=== PATIENT | female | born 1945 | race Caucasian/White ===

== ENCOUNTER → 2017-10-16 13:08 | Outpatient (CLI) | payer MEDICARE, OTHER, SELFPAY ==
[2017-10-16 14:01] LABS: Add Manual Diff / Slide Review NO; Basophils Percent Auto 0.5 % (0-2); Eosinophils Percent Auto 2.7 % (2-4); Hematocrit 38.4 % (36-46); Hemoglobin 12.8 g/dL (12.0-16.0); Lymphocytes Percent Auto 33.5 % (25-40); Mean Corpuscular HGB Conc 33.4 % (30-36); Mean Corpuscular Hemoglobin 29.3 PG (26-34); Mean Corpuscular Volume 87.7 fL (80-100); Monocytes Percent Auto 7.1 % (3-14); Neutrophils Absolute Auto 2700 /uL (3000-5900); Neutrophils Percent Auto 56.2 % (50-75); Platelet Count 219 X10^3/uL (150-400); Red Blood Cell Count 4.37 X10^6/uL (4.0-5.2); Red Cell Distribution Width 12.6 % (11.6-14.8); White Blood Cell Count 4.8 X10^3/uL (4.5-11.0)
[2017-10-16 14:13] LABS: Erythrocyte Sedimentation Rate 20 MM/HR (0-20)
[2017-10-16 14:24] LABS: Alanine Aminotransferase 26 IU/L (9-52); Albumin 4.3 g/dL (3.5-5.0); Albumin Globulin Ratio 1.4 (1.0-2.8); Alkaline Phosphatase 69 U/L (38-126); Aspartate Aminotransferase 25 IU/L (14-36); BUN Creatinine Ratio 21.3 (6-22); Bilirubin Total 0.5 mg/dL (0.2-1.3); Blood Urea Nitrogen 17 mg/dL (7-17); Calcium 9.9 mg/dL (8.4-10.2); Carbon Dioxide 29 mmol/L (22-32); Chloride 101 mmol/L (98-107); Cholesterol 205 mg/dL (140-199); Estimated Glomerular Filt Rate > 60.0 mL/min (>60); Globulin 3.1 g/dL (1.7-4.1); Glucose 92 mg/dL (80-110); HDL Cholesterol 57 mg/dL (40-60); HEMOLYSIS < 15 (0-50); LDL Cholesterol Calculated 129 mg/dL (<100); Potassium 4.1 mmol/L (3.4-5.1); Sodium 141 mmol/L (137-145); Total Protein 7.4 g/dL (6.3-8.2); Triglycerides 96 mg/dL (35-150)
== END ==
PROVIDERS: Family Provider Internal Medicine; PCP Internal Medicine; Visit Provider Internal Medicine
DX: M06.80 Other specified rheumatoid arthritis, unspecified site (principal); E78.6 Lipoprotein deficiency
CPT/HCPCS: 36415; 80053; 80061; 85025; 85651

== ENCOUNTER → 2017-10-17 12:20 | Outpatient (CLI) | payer MEDICARE, OTHER, SELFPAY ==
--- NOTE | 2017-10-17 | DI.MG.S_ITS ---
BILATERAL DIGITAL SCREENING MAMMOGRAM 3D/2D WITH CAD: 10/17/2017 CLINICAL: Routine screening. Family history of breast cancer. Comparison is made to exams dated: 05/13/2014 mammogram, 12/26/2011 mammogram, and 12/16/2009 mammogram - [facility]. The tissue of both breasts is extremely dense, which lowers the sensitivity of mammography. Current study was also evaluated with a Computer Aided Detection (CAD) system. No significant masses, calcifications, or other findings are seen in either breast. There has been no significant interval change. IMPRESSION: NEGATIVE There is no mammographic evidence of malignancy. A 1 year screening mammogram is recommended. This exam was interpreted at Station ID: [id number]. NOTE: For mammograms, a report in lay terms will be sent to the patient. Approximately 15% of breast malignancies will not be visualized mammographically. In the management of a palpable breast mass, a negative mammogram must not discourage biopsy of a clinically suspicious lesion. Electronically Signed By: Jovanny patel/jasmyne:10/17/2017 17:33:52 letter sent: Normal Exam ACR BI-RADS Category 1: Negative 3341F
== END ==
PROVIDERS: Family Provider Internal Medicine; PCP Internal Medicine; Visit Provider Internal Medicine
DX: Z12.31 Encounter for screening mammogram for malignant neoplasm of breast (principal); Z80.3 Family history of malignant neoplasm of breast
CPT/HCPCS: 77063; 77067

== ENCOUNTER → 2017-10-18 13:16 | Outpatient (CLI) | payer MEDICARE, OTHER, SELFPAY ==
--- NOTE | 2017-10-18 | DI.RAD.S_ITS ---
This blank DEXA report has been sent in error by the PACS system. The correct and complete report will be forthcoming in 1-2 days. Thank you for your patience and understanding. Dictated by: Edi Hyman M.D. on 10/18/2017 at 15:08 Approved by: Edi Hyman M.D. on 10/18/2017 at 15:08
--- NOTE | 2017-10-18 | DI.MRI.S_ITS ---
PROCEDURE: MR HAND RT WO CON INDICATIONS: PAIN IN RIGHT HAND TECHNIQUE: Coronal and axial T1 spin echo and T2 fast spin echo with fat saturation. Post-contrast coronal and axial T1 spin echo with fat saturation images through the right hand and wrist. COMPARISON: [facility] [place], CR, XR WRIST 3+ VIEWS RIGHT, 09/28/2017, 14:17. [facility] [place], COMFORT, BILATERAL HAND 3VW, 06/03/2015, 13:59. FINDINGS: Image quality: Excellent. Bones and cartilage: There is diffuse joint space narrowing throughout the first through fifth interphalangeal joints, MCP joints, and CMC joints. Marrow edema is noted adjacent to sac in MCP joint as well as the second through fourth PIP joints. There is suggestion of bony erosive changes involving both medial and lateral aspect of second through fourth proximal phalangeal heads. Erosive changes also noted involving the radial aspect of the second and third metatarsal heads. Subtle erosive changes also noted involving proximal portion of triquetrum and possible proximal and ulnar aspect of lunate. Chronic appearing deformity involving the first metacarpal head is seen with erosive changes are noted in first metacarpal head and first proximal phalangeal base. Synovium: There is suggestion of diffuse synovial thickening and edema surrounding the above-mentioned joints, consistent with synovitis. Significant fluid distention of extensor tendon sheaths are seen, particularly involving radial aspect of extensor tendons suggestive of significant tenosynovitis. Soft tissues: There is no evidence of flexor or extensor tendon rupture. Triangular fibrocartilage complex is grossly intact. Scapholunate or lunotriquetral ligaments are grossly intact. IMPRESSION: 1. Extensive joint space narrowing, bony erosion, marrow edema with surrounding soft tissue swelling and synovial thickening throughout first through fifth digits and intercarpal joints as described in detail above suggestive of extensive inflammatory arthropathy. 2. Significant tenosynovitis throughout extensor tendons particularly along radial aspect. No evidence of tendon or ligament rupture. Dictated by: Edi Hyman M.D. on 10/18/2017 15:38 Approved by: Edi Hyman M.D. on 10/19/2017 at 17:20
== END ==
PROVIDERS: Family Provider Internal Medicine; PCP Internal Medicine; Visit Provider Internal Medicine
DX: M79.641 Pain in right hand (principal); M65.841 Other synovitis and tenosynovitis, right hand; M19.041 Primary osteoarthritis, right hand; M79.89 Other specified soft tissue disorders; Z78.0 Asymptomatic menopausal state; M85.851 Other specified disorders of bone density and structure, right thigh; Z82.62 Family history of osteoporosis; Z87.891 Personal history of nicotine dependence; M06.9 Rheumatoid arthritis, unspecified
CPT/HCPCS: 73218; 77080

== ENCOUNTER → 2018-02-15 07:45 | Outpatient (CLI) | payer MEDICARE, OTHER, SELFPAY ==
[2018-02-15 09:01] LABS: Add Manual Diff / Slide Review NO; Basophils Percent Auto 0.4 % (0-2); Eosinophils Percent Auto 2.1 % (2-4); Hematocrit 38.9 % (36-46); Hemoglobin 12.9 g/dL (12.0-16.0); Lymphocytes Percent Auto 30.7 % (25-40); Mean Corpuscular HGB Conc 33.1 % (30-36); Mean Corpuscular Hemoglobin 29.4 PG (26-34); Mean Corpuscular Volume 88.7 fL (80-100); Monocytes Percent Auto 8.8 % (3-14); Neutrophils Absolute Auto 2400 /uL (1500-7000); Platelet Count 209 X10^3/uL (150-400); Red Blood Cell Count 4.38 X10^6/uL (4.0-5.2); Red Cell Distribution Width 13.5 % (11.6-14.8); White Blood Cell Count 4.2 X10^3/uL (4.5-11.0)
[2018-02-15 09:26] LABS: Alanine Aminotransferase 36 IU/L (9-52); Aspartate Aminotransferase 28 IU/L (14-36); Cholesterol 131 mg/dL (140-199); HDL Cholesterol 71 mg/dL (40-60); LDL Cholesterol Calculated 49 mg/dL (<100); Triglycerides 56 mg/dL (35-150)
[2018-02-15 09:27] LABS: C-Reactive Protein Quant < 0.5 mg/dL (<1.0); Erythrocyte Sedimentation Rate 14 MM/HR (0-20)
== END ==
PROVIDERS: PCP Internal Medicine; Visit Provider Internal Medicine
DX: Z23 Encounter for immunization (principal); E78.00 Pure hypercholesterolemia, unspecified
CPT/HCPCS: 36415; 80061; 84450; 84460; 85025; 85651; 86140

== ENCOUNTER → 2018-04-15 11:46 | Outpatient (CLI) | payer MEDICARE, OTHER, SELFPAY ==
[2018-04-15 12:52] LABS: BUN Creatinine Ratio 23.8 (6-22); Blood Urea Nitrogen 19 mg/dL (7-17); Calcium 9.6 mg/dL (8.4-10.2); Carbon Dioxide 28 mmol/L (22-32); Chloride 101 mmol/L (98-107); Estimated Glomerular Filt Rate > 60.0 mL/min (>60); Glucose 89 mg/dL (80-110); HEMOLYSIS < 15 (0-50); Potassium 4.4 mmol/L (3.4-5.1); Sodium 139 mmol/L (137-145)
== END ==
PROVIDERS: Family Provider Internal Medicine; PCP Internal Medicine; Visit Provider Internal Medicine Gastroenterology
DX: K63.9 Disease of intestine, unspecified (principal)
CPT/HCPCS: 36415; 80048

== ENCOUNTER → 2018-06-14 08:19 | Outpatient (CLI) | payer MEDICARE, OTHER, SELFPAY ==
[2018-06-14 09:10] LABS: Add Manual Diff / Slide Review NO; Basophils Absolute Auto 0 /uL (0-100); Basophils Percent Auto 0.5 % (0-2); Eosinophils Absolute Auto 100 /uL (0-450); Hematocrit 38.8 % (36-46); Lymphocytes Absolute Auto 1200 /uL (1100-4500); Lymphocytes Percent Auto 35.4 % (25-40); Mean Corpuscular HGB Conc 33.4 % (30-36); Mean Corpuscular Hemoglobin 29.8 PG (26-34); Mean Corpuscular Volume 89.4 fL (80-100); Monocytes Absolute Auto 300 /uL (0-900); Monocytes Percent Auto 8.2 % (3-14); Neutrophils Absolute Auto 1800 /uL (1500-7000); Neutrophils Percent Auto 51.9 % (50-75); Platelet Count 186 X10^3/uL (150-400); Red Blood Cell Count 4.34 X10^6/uL (4.0-5.2); Red Cell Distribution Width 14.9 % (11.6-14.8); White Blood Cell Count 3.4 X10^3/uL (4.5-11.0)
[2018-06-14 10:18] LABS: Alanine Aminotransferase 47 IU/L (9-52); Albumin 4.2 g/dL (3.5-5.0); Albumin Globulin Ratio 1.7 (1.0-2.8); Alkaline Phosphatase 58 U/L (38-126); Aspartate Aminotransferase 34 IU/L (14-36); Bilirubin Total 0.6 mg/dL (0.2-1.3); Blood Urea Nitrogen 16 mg/dL (7-17); Calcium 9.5 mg/dL (8.4-10.2); Carbon Dioxide 27 mmol/L (22-32); Chloride 103 mmol/L (98-107); Estimated Glomerular Filt Rate > 60.0 mL/min (>60); Globulin 2.5 g/dL (1.7-4.1); Glucose 87 mg/dL (80-110); HEMOLYSIS < 15 (0-50); Potassium 4.6 mmol/L (3.4-5.1); Sodium 138 mmol/L (137-145); Total Protein 6.7 g/dL (6.3-8.2)
[2018-06-14 12:36] LABS: Erythrocyte Sedimentation Rate 9 MM/HR (0-20)
== END ==
PROVIDERS: Family Provider Internal Medicine; PCP Internal Medicine; Visit Provider General Practice
DX: R19.03 Right lower quadrant abdominal swelling, mass and lump (principal); M15.0 Primary generalized (osteo)arthritis; E78.00 Pure hypercholesterolemia, unspecified; M06.80 Other specified rheumatoid arthritis, unspecified site
CPT/HCPCS: 36415; 80053; 85025; 85651

== ENCOUNTER → 2018-09-17 11:26 | Outpatient (CLI) | payer MEDICARE, OTHER, SELFPAY ==
[2018-09-17 11:55] LABS: Add Manual Diff / Slide Review NO; Basophils Absolute Auto 0 /uL (0-100); Basophils Percent Auto 0.5 % (0-2); Eosinophils Absolute Auto 100 /uL (0-450); Eosinophils Percent Auto 2.7 % (2-4); Hematocrit 40.7 % (36-46); Hemoglobin 13.3 g/dL (12.0-16.0); Lymphocytes Absolute Auto 1500 /uL (1100-4500); Lymphocytes Percent Auto 30.5 % (25-40); Mean Corpuscular HGB Conc 32.6 % (30-36); Monocytes Absolute Auto 400 /uL (0-900); Monocytes Percent Auto 7.5 % (3-14); Neutrophils Absolute Auto 2900 /uL (1500-7000); Neutrophils Percent Auto 58.8 % (50-75); Platelet Count 204 X10^3/uL (150-400); Red Blood Cell Count 4.42 X10^6/uL (4.0-5.2); Red Cell Distribution Width 13.9 % (11.6-14.8); White Blood Cell Count 4.9 X10^3/uL (4.5-11.0)
[2018-09-17 12:17] LABS: Erythrocyte Sedimentation Rate 6 MM/HR (0-20)
[2018-09-17 12:31] LABS: Alanine Aminotransferase 42 IU/L (9-52); Albumin 4.3 g/dL (3.5-5.0); Albumin Globulin Ratio 1.7 (1.0-2.8); Alkaline Phosphatase 64 U/L (38-126); Aspartate Aminotransferase 32 IU/L (14-36); BUN Creatinine Ratio 24.3 (6-22); Bilirubin Total 0.6 mg/dL (0.2-1.3); Blood Urea Nitrogen 17 mg/dL (7-17); Calcium 9.9 mg/dL (8.4-10.2); Carbon Dioxide 28 mmol/L (22-32); Chloride 104 mmol/L (98-107); Estimated Glomerular Filt Rate > 60.0 mL/min (>60); Globulin 2.6 g/dL (1.7-4.1); Glucose 92 mg/dL (80-110); HEMOLYSIS < 15 (0-50); Potassium 4.3 mmol/L (3.4-5.1); Sodium 141 mmol/L (137-145); Total Protein 6.9 g/dL (6.3-8.2)
== END ==
PROVIDERS: PCP Internal Medicine; Visit Provider Internal Medicine
DX: M06.80 Other specified rheumatoid arthritis, unspecified site (principal)
CPT/HCPCS: 36415; 80053; 85025; 85651

== ENCOUNTER → 2018-12-04 10:57 | Outpatient (CLI) | payer MEDICARE, OTHER, SELFPAY ==
--- NOTE | 2018-12-04 | DI.MG.S_ITS ---
BILATERAL DIGITAL SCREENING MAMMOGRAM 3D/2D WITH CAD: 12/04/2018 CLINICAL: Routine screening. Family history of breast cancer. Comparison is made to exams dated: 10/17/2017 mammogram, 05/13/2014 mammogram, and 12/26/2011 mammogram - [facility]. The tissue of both breasts is heterogeneously dense. This may lower the sensitivity of mammography. Current study was also evaluated with a Computer Aided Detection (CAD) system. No significant masses, calcifications, or other findings are seen in either breast. There has been no significant interval change. IMPRESSION: NEGATIVE There is no mammographic evidence of malignancy. A 1 year screening mammogram is recommended. This exam was interpreted at Station ID: [id number]. NOTE: For mammograms, a report in lay terms will be sent to the patient. Approximately 15% of breast malignancies will not be visualized mammographically. In the management of a palpable breast mass, a negative mammogram must not discourage biopsy of a clinically suspicious lesion. Electronically Signed By: Jovanny patel/jasmyne:12/04/2018 18:11:59 letter sent: Normal Exam ACR BI-RADS Category 1: Negative 3341F
== END ==
PROVIDERS: PCP Internal Medicine; Visit Provider Internal Medicine
DX: Z12.31 Encounter for screening mammogram for malignant neoplasm of breast (principal); Z80.3 Family history of malignant neoplasm of breast
CPT/HCPCS: 77063; 77067

== ENCOUNTER → 2018-12-19 08:17 | Outpatient (CLI) | payer MEDICARE, OTHER, SELFPAY ==
[2018-12-19 09:07] LABS: Add Manual Diff / Slide Review NO; Basophils Absolute Auto 0 /uL (0-100); Basophils Percent Auto 0.5 % (0-2); Eosinophils Absolute Auto 100 /uL (0-450); Eosinophils Percent Auto 2.5 % (2-4); Hemoglobin 13.2 g/dL (12.0-16.0); Lymphocytes Absolute Auto 1200 /uL (1100-4500); Lymphocytes Percent Auto 29.3 % (25-40); Mean Corpuscular Hemoglobin 30.3 PG (26-34); Mean Corpuscular Volume 91.8 fL (80-100); Monocytes Absolute Auto 300 /uL (0-900); Monocytes Percent Auto 8.1 % (3-14); Neutrophils Absolute Auto 2300 /uL (1500-7000); Neutrophils Percent Auto 59.6 % (50-75); Platelet Count 183 X10^3/uL (150-400); Red Blood Cell Count 4.36 X10^6/uL (4.0-5.2); Red Cell Distribution Width 13.8 % (11.6-14.8); White Blood Cell Count 3.9 X10^3/uL (4.5-11.0)
[2018-12-19 09:21] LABS: Erythrocyte Sedimentation Rate 8 MM/HR (0-20)
[2018-12-19 09:39] LABS: Alanine Aminotransferase 29 IU/L (9-52); Albumin 4.2 g/dL (3.5-5.0); Albumin Globulin Ratio 1.7 (1.0-2.8); Alkaline Phosphatase 53 U/L (38-126); Aspartate Aminotransferase 29 IU/L (14-36); BUN Creatinine Ratio 24.3 (6-22); Bilirubin Total 0.7 mg/dL (0.2-1.3); Blood Urea Nitrogen 17 mg/dL (7-17); Calcium 9.5 mg/dL (8.4-10.2); Carbon Dioxide 27 mmol/L (22-32); Chloride 105 mmol/L (98-107); Estimated Glomerular Filt Rate > 60.0 mL/min (>60); Globulin 2.5 g/dL (1.7-4.1); Glucose 90 mg/dL (80-110); HEMOLYSIS < 15 (0-50); Potassium 4.3 mmol/L (3.4-5.1); Sodium 139 mmol/L (137-145); Total Protein 6.7 g/dL (6.3-8.2)
== END ==
PROVIDERS: PCP Internal Medicine; Visit Provider Internal Medicine
DX: M06.80 Other specified rheumatoid arthritis, unspecified site (principal)
CPT/HCPCS: 36415; 80053; 85025; 85651

== ENCOUNTER → 2019-04-24 08:14 | Outpatient (CLI) | payer MEDICARE, OTHER, SELFPAY ==
[2019-04-24 09:20] LABS: Add Manual Diff / Slide Review NO; Basophils Absolute Auto 0 /uL (0-100); Basophils Percent Auto 0.5 % (0-2); Eosinophils Absolute Auto 100 /uL (0-450); Eosinophils Percent Auto 3.1 % (2-4); Hemoglobin 13.1 g/dL (12.0-16.0); Lymphocytes Absolute Auto 1100 /uL (1100-4500); Lymphocytes Percent Auto 25.2 % (25-40); Mean Corpuscular HGB Conc 33.6 % (30-36); Mean Corpuscular Hemoglobin 30.8 PG (26-34); Mean Corpuscular Volume 91.7 fL (80-100); Monocytes Absolute Auto 400 /uL (0-900); Neutrophils Absolute Auto 2800 /uL (1500-7000); Neutrophils Percent Auto 63.2 % (50-75); Platelet Count 195 X10^3/uL (150-400); Red Blood Cell Count 4.26 X10^6/uL (4.0-5.2); Red Cell Distribution Width 13.6 % (11.6-14.8); White Blood Cell Count 4.4 X10^3/uL (4.5-11.0)
[2019-04-24 09:31] LABS: Alanine Aminotransferase 22 IU/L (<35); Albumin 4.3 g/dL (3.5-5.0); Albumin Globulin Ratio 1.4 (1.0-2.8); Alkaline Phosphatase 52 U/L (38-126); Aspartate Aminotransferase 30 IU/L (14-36); Bilirubin Total 0.6 mg/dL (0.2-1.3); Blood Urea Nitrogen 14 mg/dL (7-17); Calcium 9.3 mg/dL (8.4-10.2); Carbon Dioxide 27 mmol/L (22-32); Chloride 104 mmol/L (98-107); Cholesterol 158 mg/dL (140-199); Estimated Glomerular Filt Rate > 60.0 mL/min (>60); Glucose 91 mg/dL (80-110); HDL Cholesterol 66 mg/dL (40-60); HEMOLYSIS < 15 (0-50); LDL Cholesterol Calculated 75 mg/dL (<100); Sodium 139 mmol/L (137-145); Total Protein 7.3 g/dL (6.3-8.2); Triglycerides 83 mg/dL (35-150)
[2019-04-24 09:41] LABS: Erythrocyte Sedimentation Rate 10 MM/HR (0-20)
== END ==
PROVIDERS: PCP Internal Medicine; Referring Provider Internal Medicine; Visit Provider Internal Medicine
DX: M06.80 Other specified rheumatoid arthritis, unspecified site (principal); E78.2 Mixed hyperlipidemia
CPT/HCPCS: 36415; 80053; 80061; 85025; 85651

== ENCOUNTER → 2019-08-27 08:02 | Outpatient (CLI) | payer MEDICARE, OTHER, SELFPAY ==
[2019-08-27 09:19] LABS: Add Manual Diff / Slide Review NO; Basophils Absolute Auto 0 /uL (0-100); Basophils Percent Auto 0.5 % (0-2); Eosinophils Absolute Auto 100 /uL (0-450); Eosinophils Percent Auto 2.6 % (2-4); Hematocrit 38.6 % (36-46); Hemoglobin 12.9 g/dL (12.0-16.0); Lymphocytes Absolute Auto 1400 /uL (1100-4500); Lymphocytes Percent Auto 28.8 % (25-40); Mean Corpuscular HGB Conc 33.5 % (30-36); Mean Corpuscular Hemoglobin 30.7 PG (26-34); Mean Corpuscular Volume 91.6 fL (80-100); Monocytes Absolute Auto 400 /uL (0-900); Monocytes Percent Auto 8.3 % (3-14); Neutrophils Absolute Auto 2900 /uL (1500-7000); Neutrophils Percent Auto 59.8 % (50-75); Platelet Count 182 X10^3/uL (150-400); Red Blood Cell Count 4.21 X10^6/uL (4.0-5.2); White Blood Cell Count 4.9 X10^3/uL (4.5-11.0)
[2019-08-27 09:26] LABS: Erythrocyte Sedimentation Rate 9 MM/HR (0-20)
[2019-08-27 09:47] LABS: Alanine Aminotransferase 25 IU/L (<35); Albumin 4.4 g/dL (3.5-5.0); Albumin Globulin Ratio 1.6 (1.0-2.8); Alkaline Phosphatase 55 U/L (38-126); Aspartate Aminotransferase 30 IU/L (14-36); BUN Creatinine Ratio 21.3 (6-22); Bilirubin Total 0.6 mg/dL (0.2-1.3); Blood Urea Nitrogen 16 mg/dL (7-17); Calcium 9.7 mg/dL (8.4-10.2); Carbon Dioxide 29 mmol/L (22-32); Chloride 103 mmol/L (98-107); Estimated Glomerular Filt Rate > 60.0 mL/min (>60); Globulin 2.8 g/dL (1.7-4.1); Glucose 95 mg/dL (80-110); HEMOLYSIS < 15 (0-50); Potassium 4.3 mmol/L (3.4-5.1); Sodium 138 mmol/L (137-145); Total Protein 7.2 g/dL (6.3-8.2)
== END ==
PROVIDERS: PCP Internal Medicine; Referring Provider Internal Medicine; Visit Provider Internal Medicine
DX: M06.80 Other specified rheumatoid arthritis, unspecified site (principal)
CPT/HCPCS: 36415; 80053; 85025; 85651

== ENCOUNTER → 2020-02-03 08:12 | Outpatient (CLI) | payer MEDICARE, OTHER, SELFPAY ==
[2020-02-03 08:52] LABS: Add Manual Diff / Slide Review NO; Basophils Absolute Auto 0 /uL (0-100); Basophils Percent Auto 0.7 % (0-2); Eosinophils Absolute Auto 100 /uL (0-450); Eosinophils Percent Auto 2.8 % (2-4); Hemoglobin 13.2 g/dL (12.0-16.0); Lymphocytes Absolute Auto 1200 /uL (1100-4500); Mean Corpuscular HGB Conc 32.3 % (30-36); Mean Corpuscular Hemoglobin 30.1 PG (26-34); Mean Corpuscular Volume 93.1 fL (80-100); Monocytes Absolute Auto 400 /uL (0-900); Monocytes Percent Auto 9.5 % (3-14); Neutrophils Absolute Auto 2300 /uL (1500-7000); Platelet Count 180 X10^3/uL (150-400); Red Cell Distribution Width 14.1 % (11.6-14.8)
[2020-02-03 09:21] LABS: Alanine Aminotransferase 45 IU/L (<35); Albumin 4.3 g/dL (3.5-5.0); Albumin Globulin Ratio 1.5 (1.0-2.8); Alkaline Phosphatase 59 U/L (38-126); Aspartate Aminotransferase 39 IU/L (14-36); BUN Creatinine Ratio 17.1 (6-22); Bilirubin Total 0.7 mg/dL (0.2-1.3); Blood Urea Nitrogen 12 mg/dL (7-17); Calcium 9.3 mg/dL (8.4-10.2); Carbon Dioxide 30 mmol/L (22-32); Chloride 104 mmol/L (98-107); Estimated Glomerular Filt Rate > 60.0 mL/min (>60); Globulin 2.8 g/dL (1.7-4.1); Glucose 98 mg/dL (80-110); HEMOLYSIS < 15 (0-50); Potassium 4.1 mmol/L (3.4-5.1); Sodium 138 mmol/L (137-145); Total Protein 7.1 g/dL (6.3-8.2)
[2020-02-03 09:38] LABS: Erythrocyte Sedimentation Rate 5 MM/HR (0-20)
== END ==
PROVIDERS: PCP Internal Medicine; Referring Provider Internal Medicine; Visit Provider Internal Medicine
DX: M06.80 Other specified rheumatoid arthritis, unspecified site (principal); E78.2 Mixed hyperlipidemia
CPT/HCPCS: 36415; 80053; 85025; 85651

== ENCOUNTER → 2020-03-19 11:55 | Outpatient (CLI) | payer MEDICARE, OTHER, SELFPAY ==
--- NOTE | 2020-03-19 | DI.MG.S_ITS ---
BILATERAL DIGITAL SCREENING MAMMOGRAM 3D/2D WITH CAD: 03/19/2020 CLINICAL: Routine screening. Family history of breast cancer. Comparison is made to exams dated: 12/04/2018 mammogram, 10/17/2017 mammogram, 05/13/2014 mammogram, 12/26/2011 mammogram, and 12/16/2009 mammogram - [facility]. The tissue of both breasts is heterogeneously dense. This may lower the sensitivity of mammography. Current study was also evaluated with a Computer Aided Detection (CAD) system. No significant masses, calcifications, or other findings are seen in either breast. There has been no significant interval change. IMPRESSION: NEGATIVE There is no mammographic evidence of malignancy. A 1 year screening mammogram is recommended. This exam was interpreted at Station ID: [id number]. NOTE: For mammograms, a report in lay terms will be sent to the patient. Approximately 15% of breast malignancies will not be visualized mammographically. In the management of a palpable breast mass, a negative mammogram must not discourage biopsy of a clinically suspicious lesion. Electronically Signed By: Aleksandar saavedra/jasmyne:03/19/2020 18:08:50 letter sent: Normal Exam ACR BI-RADS Category 1: Negative 3341F
== END ==
PROVIDERS: PCP Internal Medicine; Referring Provider Internal Medicine; Visit Provider Internal Medicine
DX: Z12.31 Encounter for screening mammogram for malignant neoplasm of breast (principal); Z80.3 Family history of malignant neoplasm of breast; Z13.820 Encounter for screening for osteoporosis; M85.851 Other specified disorders of bone density and structure, right thigh; Z78.0 Asymptomatic menopausal state; M06.9 Rheumatoid arthritis, unspecified; Z82.62 Family history of osteoporosis; Z87.891 Personal history of nicotine dependence
CPT/HCPCS: 77063; 77067; 77080

== ENCOUNTER → 2020-06-03 08:15 | Outpatient (CLI) | payer MEDICARE, OTHER, SELFPAY ==
[2020-06-03 09:44] LABS: Add Manual Diff / Slide Review NO; Basophils Absolute Auto 0 /uL (0-100); Basophils Percent Auto 0.9 % (0-2); Eosinophils Absolute Auto 100 /uL (0-450); Eosinophils Percent Auto 2.6 % (2-4); Hematocrit 39.4 % (36-46); Hemoglobin 12.9 g/dL (12.0-16.0); Lymphocytes Absolute Auto 1400 /uL (1100-4500); Lymphocytes Percent Auto 37.1 % (25-40); Mean Corpuscular HGB Conc 32.7 % (30-36); Mean Corpuscular Hemoglobin 30.4 PG (26-34); Mean Corpuscular Volume 92.9 fL (80-100); Monocytes Absolute Auto 300 /uL (0-900); Monocytes Percent Auto 9.2 % (3-14); Neutrophils Absolute Auto 1900 /uL (1500-7000); Neutrophils Percent Auto 50.2 % (50-75); Platelet Count 176 X10^3/uL (150-400); Red Blood Cell Count 4.24 X10^6/uL (4.0-5.2); Red Cell Distribution Width 13.3 % (11.6-14.8); White Blood Cell Count 3.8 X10^3/uL (4.5-11.0)
[2020-06-03 10:04] LABS: Alanine Aminotransferase 63 IU/L (<35); Albumin 4.4 g/dL (3.5-5.0); Albumin Globulin Ratio 1.9 (1.0-2.8); Alkaline Phosphatase 55 U/L (38-126); Aspartate Aminotransferase 43 IU/L (14-36); BUN Creatinine Ratio 19.7 (6-22); Bilirubin Total 0.6 mg/dL (0.2-1.3); Blood Urea Nitrogen 14 mg/dL (7-17); Calcium 9.8 mg/dL (8.4-10.2); Carbon Dioxide 26 mmol/L (22-32); Chloride 105 mmol/L (98-107); Erythrocyte Sedimentation Rate 7 MM/HR (0-20); Estimated Glomerular Filt Rate > 60.0 mL/min (>60); Globulin 2.3 g/dL (1.7-4.1); Glucose 90 mg/dL (80-110); HEMOLYSIS < 15 (0-50); Potassium 4.2 mmol/L (3.4-5.1); Sodium 139 mmol/L (137-145); Total Protein 6.7 g/dL (6.3-8.2)
== END ==
PROVIDERS: PCP Internal Medicine; Referring Provider Internal Medicine; Visit Provider Internal Medicine
DX: M06.80 Other specified rheumatoid arthritis, unspecified site (principal); E78.2 Mixed hyperlipidemia
CPT/HCPCS: 36415; 80053; 85025; 85651

== ENCOUNTER → 2020-12-06 07:48 | Outpatient (CLI) | payer MEDICARE, OTHER, SELFPAY ==
[2020-12-06 09:47] LABS: Alanine Aminotransferase 25 IU/L (<35); Albumin 4.3 g/dL (3.5-5.0); Albumin Globulin Ratio 1.7 (1.0-2.8); Alkaline Phosphatase 54 U/L (38-126); Aspartate Aminotransferase 29 IU/L (14-36); BUN Creatinine Ratio 20.5 (6-22); Bilirubin Total 0.6 mg/dL (0.2-1.3); Blood Urea Nitrogen 15 mg/dL (7-17); Calcium 9.7 mg/dL (8.4-10.2); Carbon Dioxide 33 mmol/L (22-32); Chloride 103 mmol/L (98-107); Cholesterol 173 mg/dL (140-199); Estimated Glomerular Filt Rate > 60.0 mL/min (>60); Globulin 2.5 g/dL (1.7-4.1); Glucose 89 mg/dL (80-110); HDL Cholesterol 83 mg/dL (40-60); HEMOLYSIS < 15 (0-50); LDL Cholesterol Calculated 75 mg/dL (<100); Potassium 4.3 mmol/L (3.4-5.1); Sodium 141 mmol/L (137-145); Total Protein 6.8 g/dL (6.3-8.2); Triglycerides 77 mg/dL (35-150)
== END ==
PROVIDERS: PCP Internal Medicine; Referring Provider Internal Medicine; Visit Provider Internal Medicine
DX: M06.80 Other specified rheumatoid arthritis, unspecified site (principal); E78.2 Mixed hyperlipidemia
CPT/HCPCS: 36415; 80053; 80061

== ENCOUNTER → 2021-04-08 10:53 | Outpatient (CLI) | payer MEDICARE, OTHER, SELFPAY ==
--- NOTE | 2021-04-08 | DI.MG.S_ITS ---
BILATERAL DIGITAL SCREENING MAMMOGRAM 3D/2D WITH CAD: 04/08/2021 CLINICAL: Routine screening. Family history of breast cancer. Comparison is made to exams dated: 03/19/2020 mammogram, 12/04/2018 mammogram, and 10/17/2017 mammogram - [facility]. The tissue of both breasts is heterogeneously dense. This may lower the sensitivity of mammography. Current study was also evaluated with a Computer Aided Detection (CAD) system. There are benign calcifications in both breasts. No significant masses, calcifications, or other findings are seen in either breast. There has been no significant interval change. IMPRESSION: BENIGN There is no mammographic evidence of malignancy. A 1 year screening mammogram is recommended. This exam was interpreted at Station ID: [id number]. NOTE: For mammograms, a report in lay terms will be sent to the patient. Approximately 15% of breast malignancies will not be visualized mammographically. In the management of a palpable breast mass, a negative mammogram must not discourage biopsy of a clinically suspicious lesion. Electronically Signed By: Jovanny patel/jasmyne:04/08/2021 11:41:47 letter sent: Normal Exam ACR BI-RADS Category 2: Benign Finding(s) 3342F
== END ==
PROVIDERS: PCP Internal Medicine; Referring Provider Internal Medicine; Visit Provider Internal Medicine
DX: Z12.31 Encounter for screening mammogram for malignant neoplasm of breast (principal); Z80.3 Family history of malignant neoplasm of breast
CPT/HCPCS: 77063; 77067

== ENCOUNTER → 2021-04-11 09:25 | Outpatient (CLI) | payer MEDICARE, OTHER, SELFPAY ==
[2021-04-11 12:07] LABS: COVID19 -Nasal RAPID Negative (Negative)
== END ==
PROVIDERS: PCP Internal Medicine; Visit Provider Family Medicine Sleep Medicine
DX: Z20.822 Contact with and (suspected) exposure to COVID-19 (principal)
CPT/HCPCS: 87635; C9803

== ENCOUNTER 2021-04-12 06:56 | Day surgery (SDC) | payer MEDICARE, OTHER, SELFPAY ==
[2021-04-12] MEDS: PROPARACAINE 0.5% OPHTH SOL 2 DROPS EYE-OP (07:12)
[2021-04-12 07:17] VITALS: BP 147/75; PULSE 63; RESP 16; TEMP 37.1; O2SAT 100; BMI 26.5
[2021-04-12] MEDS: CATARACT EYE COMPOUND (10 DROPS/SYRINGE) 3 DROPS EYE-OP (07:25)
--- NOTE | 2021-04-12 08:13 | PM.PREOP ---
Pre-operative Note Interval Note History & Physical reviewed/Exam performed by Physician: Yes Changes to H&P: No Addendum Addendum Note: There are no nonsurgical alternatives to the patient's condition. Deterioration of the patient's condition is expected. Delay in surgery may result in more complex future surgery.
--- NOTE | 2021-04-12 08:14 | P.OP_ITS ---
Operative Date/Time/Diagnoses Pre-op diagnosis: Nuclear cataract right eye Procedure & Clinicians Procedure: Cataract Surgery Same procedure as scheduled: Yes Surgeon: Maxx Stewart Anesthesia Type: MAC +/- and Sedation Operative Notes Procedure in detail: Patient brought to the operating suite. Tetracaine drops placed in the right eye. Marking instrument was used to augustus the vertical and horizontal meridians. Patient was prepped and draped in sterile manner. Wire lid speculum was placed in the eye. Marking instrument was used to augustus the 95 degree meridian. Betadine drops were placed on the eye. This was irrigated. Lidocaine jelly was placed on the eye. A paracentesis port was created with a side-port blade. 0.1 mL 1% preservative free lidocaine was injected into the anterior chamber. The anterior chamber was deepened with viscoelastic. 2.6 mm keratome was used to create a temporal clear corneal incision. Cystotome and Utrata forceps were used to create continuous tear capsulorrhexis. Balanced salt solution was used to hydro dissect the nucleus. The phacoemulsification handpiece was inserted and the nucleus was removed using the stop and chop technique. The iris was miotic and floppy. The irrigation aspiration handpiece was inserted and the remaining cortex was removed. Anterior chamber was deepened with viscoelastic. An Peter [id number] intraocular lens with a power of 15.0 was injected into the capsular bag. The lens was rotated to the 95 degree meridian. Irrigation aspiration handpiece was inserted and the remaining viscoelastic was removed. Incision was hydrated with balanced salt solution and found to be leak free with pressure with Weck- Donna sponges. 0.1 mL Vigamox injected anterior chamber. 0.3 mL Kenalog 10 mg was injected subconjunctivally. Lid speculum was removed. The patient left the operating room in excellent condition. Complications: none Post-operative Condition: stable Disposition: same day surgery
[2021-04-12] MEDS: HYALURONATE SODIUM 30 MG-10 MG/ML SYRINGES 1 BOX INTRAOCULA (08:28)
[2021-04-12] MEDS: PHENYLEPHRINE/LIDOCAINE VIAL (OR) 0.2 ML EYE-OP (08:29)
[2021-04-12] MEDS: TRIAMCINOLONE 50 MG/5 ML VIAL INJ (08:29)
[2021-04-12] MEDS: BALANCED SALT IRRIG SOLN NO.2 500 ML, EPINEPHrine 1 MG IRR (08:29)
[2021-04-12] MEDS: MOXIFLOXACIN INJ 4 MG/0.8 ML VIAL 0.5 MG EYE-OP (08:29)
[2021-04-12] MEDS: TETRACAINE 0.5% OPHTH DROPS 4 ML 2 DROPS EYE-OP (08:29)
[2021-04-12] MEDS: LIDOCAINE 2% (GLYDO) 6 ML GEL TOP (08:30)
[2021-04-12 08:50] VITALS: BP 143/72; PULSE 57; RESP 99; TEMP 36.5; O2SAT 100
== END 2021-04-12 09:11 | disposition home or self-care (01) ==
PROVIDERS: PCP Internal Medicine; Referring Provider Ophthalmology; Visit Provider Ophthalmology
PROC: (CPT 66984; principal; 2021-04-12 08:15)
DX: H25.11 Age-related nuclear cataract, right eye (principal)
CPT/HCPCS: 66984; J0171; J2250; J3301; V2787

== ENCOUNTER → 2021-04-25 08:51 | Outpatient (CLI) | payer MEDICARE, OTHER, SELFPAY ==
[2021-04-25 10:43] LABS: COVID19 -Nasal RAPID Negative (Negative)
== END ==
PROVIDERS: PCP Internal Medicine; Visit Provider Family Medicine Sleep Medicine
DX: Z20.822 Contact with and (suspected) exposure to COVID-19 (principal)
CPT/HCPCS: 87635; C9803

== ENCOUNTER 2021-04-26 07:53 | Day surgery (SDC) | payer MEDICARE, OTHER, SELFPAY ==
[2021-04-26] MEDS: PROPARACAINE 0.5% OPHTH SOL 2 DROPS EYE-OP (08:35)
[2021-04-26 08:39] VITALS: BP 174/77; PULSE 69; RESP 16; TEMP 36.7; O2SAT 99; BMI 26.5
[2021-04-26] MEDS: CATARACT EYE COMPOUND (10 DROPS/SYRINGE) 3 DROPS EYE-OP (08:47)
--- NOTE | 2021-04-26 09:36 | P.OP_ITS ---
Operative Date/Time/Diagnoses Pre-op diagnosis: Nuclear Cataract Left eye Post-op diagnosis: same Procedure & Clinicians Same procedure as scheduled: Yes Surgeon: Maxx Stewart Anesthesia Type: MAC +/- and Sedation Operative Notes Procedure in detail: Patient brought to the operating suite. Tetracaine drops placed in the left eye. The marking instrument was used to augustus the vertical and horizontal meridians. Patient was prepped and draped in sterile manner. Wire lid speculum was placed in the eye. Marking instrument was used to augustus the 85 degree meridian. Betadine drops were placed on the eye. This was irrigated. Lidocaine jelly was placed on the eye. A paracentesis port was created with a side-port blade. 0.1 mL 1% preservative free lidocaine was injected into the anterior chamber. The anterior chamber was deepened with viscoelastic. 2.6 mm keratome was used to create a temporal clear corneal incision. Cystotome and Utrata forceps were used to create continuous tear capsulorrhexis. Balanced salt solution was used to hydro dissect the nucleus. The phacoemulsification handpiece was inserted and the nucleus was removed using the stop and chop t echnique. The irrigation aspiration handpiece was inserted and the remaining cortex was removed. Anterior chamber was deepened with viscoelastic. An Peter [id number] intraocular lens with a power of 15.0 was injected into the capsular bag. Irrigation aspiration handpiece was inserted and the remaining viscoelastic was removed. The lens was rotated to the 85 degree meridian. Incision was hydrated with balanced salt solution and found to be leak free with pressure with Weck- Donna sponges. 0.1 mL Vigamox injected anterior chamber. 0.3 mL Kenalog 10 mg was injected subconjunctivally. Lid speculum was removed. The patient left the operating room in excellent condition. Complications: none Post-operative Condition: stable Disposition: same day surgery
--- NOTE | 2021-04-26 09:36 | PM.PREOP ---
Pre-operative Note Interval Note History & Physical reviewed/Exam performed by Physician: Yes Changes to H&P: No
[2021-04-26] MEDS: TRIAMCINOLONE 50 MG/5 ML VIAL INJ (09:55)
[2021-04-26] MEDS: PHENYLEPHRINE/LIDOCAINE VIAL (OR) 0.2 ML EYE-OP (09:55)
[2021-04-26] MEDS: HYALURONATE SODIUM 30 MG-10 MG/ML SYRINGES 1 BOX INTRAOCULA (09:55)
[2021-04-26] MEDS: MOXIFLOXACIN INJ 4 MG/0.8 ML VIAL 0.5 MG EYE-OP (09:55)
[2021-04-26] MEDS: LIDOCAINE 2% (GLYDO) 6 ML GEL TOP (09:56)
[2021-04-26] MEDS: BALANCED SALT IRRIG SOLN NO.2 500 ML, EPINEPHrine 1 MG IRR (09:56)
[2021-04-26] MEDS: TETRACAINE 0.5% OPHTH DROPS 4 ML 2 DROPS EYE-OP (09:56)
[2021-04-26 10:24] VITALS: BP 144/80; PULSE 58; RESP 18; TEMP 36.1; O2SAT 99
== END 2021-04-26 10:26 | disposition home or self-care (01) ==
PROVIDERS: PCP Internal Medicine; Referring Provider Ophthalmology; Visit Provider Ophthalmology
PROC: (CPT 66984; principal; 2021-04-26 09:45)
DX: H25.12 Age-related nuclear cataract, left eye (principal)
CPT/HCPCS: 66984; J0171; J2250; J3301; V2787

== ENCOUNTER → 2021-10-07 11:24 | Outpatient (CLI) | payer MEDICARE, OTHER, SELFPAY ==
[2021-10-07 11:53] LABS: COVID19 -Nasal RAPID Negative (Negative)
== END ==
PROVIDERS: PCP Internal Medicine; Visit Provider Surgery
DX: Z20.822 Contact with and (suspected) exposure to COVID-19 (principal); Z01.812 Encounter for preprocedural laboratory examination
CPT/HCPCS: 87635; C9803

== ENCOUNTER 2021-10-10 10:13 | Day surgery (SDC) | payer MEDICARE, OTHER, SELFPAY ==
--- NOTE | 2021-10-10 | PATH_ITS ---
[facility] Accession Number: [id number] . 01 Material submitted: . colon - HEPATIC FLEXURE POLYP . 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 Loss of expression of MLH1 and PMS2 mismatch repair proteins, by immunohistochemistry. Please see comment. [facility] 10/13/2021 1148 Local . 01 Comment: The area of invasion measures 2 mm and is within 1 mm of the closest cauterized biopsy edge. There is no lymphovascular invasion identified. As part of routine quality internship, Dr. Anderson also reviewed this case and agrees with the diagnosis. . Dr. Quiroga discussed the results with Dr. Singleton on 10/13/2021. . 01 Electronically signed: . Saundra Quiroga MD, Pathologist NPI- [id number] . 01 Gross description: . Received in formalin, labeled hepatic flexure polyp, is one large polyp and multiple fragments of martin, soft tissue. The polyp measures 0.9 x 0.5 x 0.3 cm, is bisected and totally submitted in cassette A1. The remaining fragments measure 0.5 x 0.5 x 0.1 cm in aggregate. All fragments are totally submitted in cassette A2. ([id number]) /[facility] 10/11/2021 1721 Local . 01 Microscopic: . IMMUNOHISTOCHEMISTRY TESTING FOR MISMATCH REPAIR PROTEINS: . MLH1: Loss of nuclear expression. MSH2: Intact nuclear expression. MSH6: Intact nuclear expression. PMS2: Loss of nuclear expression. Background nonneoplastic tissue/internal control with intact nuclear expression. . INTERPRETATION: Loss of nuclear expression of MLH1 and PMS2: testing for methylation of the MLH1 promoter and/or mutation of BRAF is indicated (the presence of a BRAF V600E mutation and/or MLH1 methylation suggests that the tumor is sporadic and germline evaluation is probably not indicated; absence of both MLH1 methylation and of BRAF V600E mutation suggests the possibility of Levine syndrome, and sequencing and/or large deletion/duplication testing of germline MLH1 may be indicated)* . * There are exceptions to the above IHC interpretations. These results should not be considered in isolation, and clinical correlation with genetic counseling is recommended to assess the need for germline testing. . * This test was developed and its performance characteristics determined by [facility]. It has not been cleared or approved by the U.S. Food and Drug Administration. The FDA has determined that such clearance or approval is not necessary. This test is used for clinical purposes. It should not be regarded as investigational or for research. . . 01 Pathologist provided ICD-10: C18.9 . 01 CPT . 522000, A16721, P42319 Specimen Comment: A courtesy copy of this report has been sent to [phone] Performed at: 01 [facility] [address] [place] [address], [place], [place] [id number] MD Jovanny Anderson MD Phone: [phone]
[2021-10-10 10:46] VITALS: BMI 26.2
[2021-10-10 11:06] VITALS: BP 140/79; PULSE 83; RESP 16; TEMP 36.5; O2SAT 98
[2021-10-10] MEDS: SODIUM CHLORIDE 0.9% 1,000 ML 84 ML IV (11:06)
--- NOTE | 2021-10-10 11:46 | PM.HP.1 ---
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 Personal history of colon polyps. (history was verbally provided by the patient today) Patient History Medical History Acne (~1961) Cataracts, bilateral (~2017) Chicken pox Colon polyps (~2007) Elevated blood pressure reading without diagnosis of hypertension Endometrial thickening on ultrasound Endometriosis Fibroids Hearing loss (~2006) Heavy menstrual period Hemorrhoid (~2007) Infertility Measles Mixed hyperlipidemia Mumps Neoplasm of uncertain behavior of appendix Osteopenia Painful menstrual periods Rheumatoid arthritis (~2003) Rubella Skin cancer Tinnitus (~1992) Family & Social History Social History: household members spouse Tobacco & Substance use: Smoking Status Former smoker alcohol intake frequency a few times a week Substance Use Type does not use Meds Home Medications and Allergies Home Medications Medication Instructions Recorded Confirmed Type gentamicin 0.1 % topical ointment 1 halima topical TIDP PRN Dry Nasal 04/14/16 10/10/21 History Passages ##0 multivitamin (Multiple Vitamins 1 tab PO QDAY ##0 04/14/16 10/10/21 History tablet) VITAMIN D 400 units PO BID ##0 08/08/21 10/10/21 History atorvastatin 10 mg tablet 10 mg PO DAILY #90 tabs 08/08/21 10/10/21 Rx calcium carbonate 600 mg calcium 600 mg PO DAILY #0 tabs 08/08/21 10/10/21 History (1,500 mg) tablet hydroxychloroquine 200 mg tablet 200 mg PO BIDCC #180 tabs 08/08/21 10/10/21 Rx (Plaquenil) acetaminophen 500 mg tablet 500 mg BID 10/10/21 10/10/21 History Allergies Allergy/AdvReac Type Severity Reaction Status Date / Time methotrexate AdvReac Intermediate Verified 08/08/21 11:50 Review of Systems Review of Systems ROS: Yes All systems reviewed with the patient and are negative except as otherwise documented Exam Vital Signs (past 8 hours): - 10/10/21 11:06 Temperature 97.7 F Pulse Rate 83 Respiratory Rate 16 Blood Pressure 140/79 Pulse Oximetry 98 Oxygen Delivery Method Room Air Oxygen Delivery Method Room Air Const General: cooperative HENMT Head: normal to inspection Eyes General: appearance normal, both eyes and all related structures Neck Neck: normal visual inspection Chest Chest: normal inspection of the chest Resp Effort & Inspection: normal respiratory effort Cardio Rate: regular rate GI Inspection: normal to inspection Skin General: no rashes or lesions noted Neuro General: patient alert and patient awake Extrem General: normal to inspection and no pedal edema Psych Appearance: grossly normal Assessment & Plan Assessment & Plan narrative: 76-year-old female with a personal history of colon polyps and a 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 Surveillance colonoscopy is pursued today. Time Spent With Patient Critical Care time: I spent a total of [] minutes of critical care time on this patient's care today; this time is exclusive of procedural time.
--- NOTE | 2021-10-10 11:48 | PM.PREOP ---
Pre-operative Note COVID-19 COVID-19 status: Negative Result date/Date tested (Pos, Neg/Pending): 10/07/21 Criteria for continued procedure: Possibility delay results in more complex future surgery or treatment Interval Note History & Physical reviewed/Exam performed by Physician: Yes Changes to H&P: No ASA Class (for procedural sedation): II
--- NOTE | 2021-10-10 13:06 | PM.OP.COLON ---
Operative Date/Time/Diagnoses Date of procedure: 10/10/21 Time of procedure: 13:06 Pre-op diagnosis: Personal history of colon polyps and a personal history of mucinous neoplasm at the base of the appendix. Post-op diagnosis: same Procedure & Clinicians Study performed: Colonoscopy with hot snare polypectomy Same procedure as scheduled: Yes Indications: Personal history of colon polyps and a personal history of mucinous neoplasm at the base of the appendix. Surgeon: Noah Singleton Procedure Notes SCOAP/Timeout: Done Procedure in detail: After the risks and benefits were explained, written and verbal informed consent was obtained. The patient was brought into the procedure room and placed into the left lateral decubitus position. Please see nurse public welfare director notes for sedation details. Digital rectal examination was accomplished. The scope was introduced into the patient and advanced under direct visualization to the cecum as identified by the appendiceal orifice and ileocecal valve. The scope was slowly withdrawn to carefully examine the mucosa for any defects or lesions. Comprehensive imaging was accomplished throughout the rectum including the dentate line. The colon was decompressed, the scope was then removed from the patient who tolerated the procedure well. Pediatric colonoscope Bowel prep fair initially; this was rendered adequate with copious irrigation and suction. Scope withdrawal time: 16 minutes Sedation minutes: 40 Complications: none Impression: Patient had a very tortuous colon. Navigation was quite challenging. The cecum appeared to be within normal limits consistent with prior cecectomy/appendectomy. No recurrent neoplastic foci visualized. At the hepatic flexure there was a sessile approximately 12 mm oblong polyp removed with hot snare polypectomy. No additional pathology was appreciated throughout with the exception of grade 2 internal hemorrhoids with evidence of some distal rectal erythema consistent with prolapse induced irritation. Endoscopic diagnosis 1. Colon polyp 2. Hemorrhoids grade 2 3. Distal rectal erythema consistent with intermittent prolapse Post-procedure Plan for aftercare: 1. Await histopathology. 2. Repeat colonoscopy 3 years. Disposition: PACU
[2021-10-10 13:10] VITALS: BP 122/83; PULSE 65; RESP 12; TEMP 36.2; O2SAT 98
[2021-10-10 13:15] VITALS: BP 118/63; PULSE 66; RESP 15; O2SAT 98
[2021-10-10 13:20] VITALS: BP 116/52; PULSE 56; RESP 15; O2SAT 99
[2021-10-10 13:25] VITALS: BP 133/64; PULSE 55; RESP 12; O2SAT 99
[2021-10-10 13:26] VITALS: BP 134/64; PULSE 54; RESP 96; O2SAT 99
== END 2021-10-10 13:54 | disposition home or self-care (01) ==
PROVIDERS: PCP Internal Medicine; Referring Provider Internal Medicine Gastroenterology; Visit Provider Internal Medicine Gastroenterology
PROC: 0DJD8ZZ Inspection of Lower Intestinal Tract, Via Natural or Artificial Opening Endoscopic (ICD-10-PCS; CPT 45378; principal; 2021-10-10 11:30)
DX: Z12.11 Encounter for screening for malignant neoplasm of colon (principal); Z85.89 Personal history of malignant neoplasm of other organs and systems; K64.1 Second degree hemorrhoids; C18.9 Malignant neoplasm of colon, unspecified
CPT/HCPCS: 45385; J2704

== ENCOUNTER → 2021-10-21 16:35 | Outpatient (CLI) | payer MEDICARE, OTHER, SELFPAY ==
[2021-10-21 17:28] LABS: COVID19 -Nasal RAPID Negative (Negative)
== END ==
PROVIDERS: PCP Internal Medicine; Visit Provider Surgery
DX: Z20.822 Contact with and (suspected) exposure to COVID-19 (principal); Z01.812 Encounter for preprocedural laboratory examination
CPT/HCPCS: 87635; C9803

== ENCOUNTER 2021-10-24 13:53 | Day surgery (SDC) | payer MEDICARE, OTHER, SELFPAY ==
[2021-10-24] VITALS (8 sets, daily range): BP systolic 111–152; BP diastolic 60–78; PULSE 51–84; RESP 12–18; TEMP 36.2–37.2; O2SAT 96–100; BMI 25.4
[2021-10-24] MEDS: SODIUM CHLORIDE 0.9% 1,000 ML 84 ML IV (14:46)
--- NOTE | 2021-10-24 15:15 | PM.HP.1 ---
History of Present Illness History of Present Illness Date Patient Seen: 10/24/21 Time Patient Seen: 15:15 Chief complaint: DX COLONOSCOPY Narrative: Advanced histology polyp at the hepatic flexure. Repeat colonoscopy for tattoo is planned for today. Patient History Medical History Acne (~1961) Cataracts, bilateral (~2017) Chicken pox Colon cancer Colon polyps (~2007) Elevated blood pressure reading without diagnosis of hypertension Endometrial thickening on ultrasound Endometriosis Fibroids Hearing loss (~2006) Heavy menstrual period Hemorrhoid (~2007) Infertility Measles Mixed hyperlipidemia Mumps Neoplasm of uncertain behavior of appendix Osteopenia Painful menstrual periods Rheumatoid arthritis (~2003) Rubella Skin cancer Tinnitus (~1992) Family & Social History Social History: household members spouse Tobacco & Substance use: Smoking Status Former smoker alcohol intake current alcohol intake frequency a few times a week Substance Use Type does not use Meds Home Medications and Allergies Home Medications Medication Instructions Recorded Confirmed Type gentamicin 0.1 % topical ointment 1 halima topical TIDP PRN Dry Nasal 04/14/16 10/24/21 History Passages ##0 multivitamin (Multiple Vitamins 1 tab PO QDAY ##0 04/14/16 10/24/21 History tablet) VITAMIN D 400 units PO BID ##0 08/08/21 10/24/21 History atorvastatin 10 mg tablet 10 mg PO DAILY #90 tabs 08/08/21 10/24/21 Rx calcium carbonate 600 mg calcium 600 mg PO DAILY #0 tabs 08/08/21 10/24/21 History (1,500 mg) tablet hydroxychloroquine 200 mg tablet 200 mg PO BIDCC #180 tabs 08/08/21 10/24/21 Rx (Plaquenil) acetaminophen 500 mg tablet 500 mg BID 10/10/21 10/24/21 History Allergies Allergy/AdvReac Type Severity Reaction Status Date / Time methotrexate AdvReac Intermediate elevated Verified 10/24/21 14:26 liver enzymes Review of Systems Review of Systems ROS: Yes All systems reviewed with the patient and are negative except as otherwise documented Exam Vital Signs (past 8 hours): - 10/24/21 14:36 Temperature 98.9 F Pulse Rate 84 Respiratory Rate 16 Blood Pressure 152/78 H Pulse Oximetry 98 Oxygen Delivery Method Room Air Oxygen Delivery Method Room Air Const General: cooperative HENMT Head: normal to inspection Eyes General: appearance normal, both eyes and all related structures Neck Neck: normal visual inspection Chest Chest: normal inspection of the chest Resp Effort & Inspection: normal respiratory effort Cardio Rate: regular rate GI Inspection: normal to inspection Skin General: no rashes or lesions noted Neuro General: patient alert and patient awake Extrem General: normal to inspection and no pedal edema Psych Appearance: grossly normal Assessment & Plan Assessment & Plan narrative: 76-year-old female with an advanced histology polyp with malignant features. Repeat colonoscopy for tattoo is planned for today Time Spent With Patient Critical Care time: I spent a total of [] minutes of critical care time on this patient's care today; this time is exclusive of procedural time.
--- NOTE | 2021-10-24 15:18 | PM.PREOP ---
Pre-operative Note COVID-19 COVID-19 status: Negative Result date/Date tested (Pos, Neg/Pending): 10/21/21 Criteria for continued procedure: Possibility delay results in more complex future surgery or treatment Interval Note History & Physical reviewed/Exam performed by Physician: Yes Changes to H&P: No ASA Class (for procedural sedation): III
--- NOTE | 2021-10-24 16:17 | PM.OP.COLON ---
Operative Date/Time/Diagnoses Date of procedure: 10/24/21 Time of procedure: 16:17 Pre-op diagnosis: Colon polyp with malignant features. Exam is for repeat assessment of the polypectomy site and tattoo placement Post-op diagnosis: same Procedure & Clinicians Study performed: Colonoscopy with submucosal injection Same procedure as scheduled: Yes Indications: Colon polyp with malignant features. Exam is for repeat assessment of the polypectomy site and tattoo placement Surgeon: Noah Singleton Procedure Notes SCOAP/Timeout: Done Procedure in detail: After the risks and benefits were explained, written and verbal informed consent was obtained. The patient was brought into the procedure room and placed into the left lateral decubitus position. Please see nurse avionics electronics technician notes for sedation details. Digital rectal examination was accomplished. The scope was introduced into the patient and advanced under direct visualization to the cecum as identified by the appendiceal orifice and ileocecal valve. The scope was slowly withdrawn to carefully examine the mucosa for any defects or lesions. Comprehensive imaging was accomplished throughout the rectum including the dentate line. The colon was decompressed, the scope was then removed from the patient who tolerated the procedure well. Pediatric colonoscope Bowel prep adequate Scope withdrawal time: 15 minutes Sedation minutes: 27 Specimen(s): none sent Complications: none Impression: The previously identified hemorrhoids with adjacent erythema suggestive of intermittent prolapse was again noted and photographed today. The patient again had a moderately tortuous colon. The prior polypectomy site at the hepatic flexure was fairly easily identified. The mucosa appears to have heaped up consistent with ongoing healing. There was a small amount of blood with in the nearly an entirely sealed over base of the polypectomy site. Numerous photographs were taken. Including the base, I did not see any mucosal features that suggested residual adenomatous tissue. We placed 2 separate 0.3 mL Heather ink tattoo is just distal to the polypectomy site and photographed it. Endoscopic diagnosis 1. Successful tattoo placement at prior polypectomy site 2. No obvious endoscopic suggestion of residual polyp 3. Hemorrhoids with irritation from probable intermittent rectal prolapse. Post-procedure Plan for aftercare: 1. Proceed with CT chest abdomen pelvis with IV contrast. 2. CEA blood test 3. Surgery consultation 4. Oncology consultation Disposition: PACU
== END 2021-10-24 17:05 | disposition home or self-care (01) ==
PROVIDERS: PCP Internal Medicine; Referring Provider Internal Medicine Gastroenterology; Visit Provider Internal Medicine Gastroenterology
PROC: 0DJD8ZZ Inspection of Lower Intestinal Tract, Via Natural or Artificial Opening Endoscopic (ICD-10-PCS; CPT 45378; principal; 2021-10-24 15:00)
DX: Z09 Encounter for follow-up examination after completed treatment for conditions other than malignant neoplasm (principal); Z86.010 Personal history of colon polyps; K64.9 Unspecified hemorrhoids
CPT/HCPCS: 45381; C9803; J2704

== ENCOUNTER → 2021-10-26 08:24 | Outpatient (CLI) | payer MEDICARE, OTHER, SELFPAY ==
[2021-10-26 09:23] LABS: Blood Urea Nitrogen 14 mg/dL (7-17); Estimated Glomerular Filt Rate > 60 mL/min (>60)
[2021-10-26 09:53] LABS: Carcinoembryonic Antigen 0.5 ng/mL (0.1-3.0)
== END ==
PROVIDERS: PCP Internal Medicine; Referring Provider Internal Medicine Gastroenterology; Visit Provider Internal Medicine Gastroenterology
DX: C18.9 Malignant neoplasm of colon, unspecified (principal)
CPT/HCPCS: 36415; 82378; 82565; 84520

== ENCOUNTER → 2021-10-28 09:29 | Outpatient (CLI) | payer MEDICARE, OTHER, SELFPAY ==
--- NOTE | 2021-10-28 | DI.CT.S_ITS ---
PROCEDURE: CT CHEST ABD PEL W CON INDICATIONS: malignant neoplasm of colon, unspecified TECHNIQUE: After the administration of oral and intravenous contrast, axial sections acquired from the supraclavicular neck to the pubic symphysis. Coronal and sagittal reformats were performed. For radiation dose reduction, the following was used: automated exposure control, adjustment of mA and/or kV according to patient size. COMPARISON: [facility], CT, CT ABDOMEN PELVIS WITH CONTRAST, 04/16/2018, 17:05. FINDINGS: Image quality: Excellent. CHEST: Lower Neck: No enlarged lymph nodes. Thyroid: Right thyroid gland is asymmetrically larger compared to the left. Suspect right thyroid nodule with coarse calcification. Axillae: Prominent left axillary lymph node measuring 1 cm short axis diameter, (4/). Chest Wall: Unremarkable. Lungs and Airways: No consolidation or suspicious nodules. A few punctate pulmonary nodules. Airways are clear. Pleura: No pneumothorax or pleural effusions. Heart: Heart size is normal. No pericardial effusion. Thoracic Vessels: The aorta and pulmonary arteries demonstrate normal size. Mediastinum and Melissa: No enlarged lymph nodes. Esophagus: No wall thickening. Question tiny hiatal hernia. ABDOMEN: Liver: Focal fatty infiltration at the falciform ligament. Punctate hypodensity in segment 4 which has the appearance of benign cysts. These findings are unchanged. Gallbladder: Not distended. Biliary ducts: Unremarkable. Pancreas: Unremarkable. Spleen: Hypodense focus is most consistent with a benign cyst or hemangioma. No splenomegaly. Adrenal Glands: Unremarkable. Kidneys and Ureters: No hydronephrosis. Stomach and Bowel: No small bowel obstruction. The appendix is absent. No mass identified. Cecum is somewhat patulous. There is somewhat prominent stool in the colon. Peritoneum: No abnormal intraperitoneal fluid. No free air. Ventral Wall: Tiny umbilical hernia. Abdominal Nodes: No retroperitoneal or mesenteric adenopathy by size criteria. Vessels: Aorta and inferior vena cava are normal in size. PELVIS: Pelvic Organs: Uterus is unremarkable. Small right ovarian cyst measuring 1.7 cm. Bladder: No bladder stone. Pelvic Nodes: No enlarged lymph nodes. Miscellaneous: No inguinal hernias are seen. Posterior compartment of the right upper thigh intramuscular lipoma. Bones: No suspicious lesion. Multilevel DDD. IMPRESSION: 1. No mass identified. No adenopathy. Post appendectomy. 2. No small bowel obstruction. No free fluid. Dictated by: Aleksandar Mcgill M.D. on 10/28/2021 at 13:12 Approved by: Aleksandar Mcgill M.D. on 10/28/2021 at 13:25
== END ==
PROVIDERS: PCP Internal Medicine; Referring Provider Internal Medicine Gastroenterology; Visit Provider Internal Medicine Gastroenterology
DX: C18.9 Malignant neoplasm of colon, unspecified (principal); E04.9 Nontoxic goiter, unspecified
CPT/HCPCS: 71260; 74177; Q9967

== ENCOUNTER → 2021-12-12 09:06 | Outpatient (CLI) | payer MEDICARE, OTHER, SELFPAY ==
[2021-12-12 12:19] LABS: COVID19 -Nasal RAPID Negative (Negative)
== END ==
PROVIDERS: PCP Internal Medicine; Visit Provider Surgery
DX: Z01.812 Encounter for preprocedural laboratory examination (principal); Z20.822 Contact with and (suspected) exposure to COVID-19
CPT/HCPCS: 87635

== ENCOUNTER 2021-12-13 06:24 | Inpatient (IN) | payer MEDICARE, OTHER, SELFPAY ==
[2021-12-07 09:31] VITALS: BMI 25.6
--- NOTE | 2021-12-07 15:57 | DIET.OUTPTC ---
Dietary Outpatient Consultation Note Consultation Date: 12/07/2021 Spoke c pt over phone for ERAS protocol. Pt to follow clear liquid diet for 2d prior to hemicolectomy for removal of cancerous polyp. Pt will drink ONS Ensure Clear 1-3/d during her prep. Pt with no reported unintentional weight loss and no food allergies nor food avoidances. Educated pt on diet advancement while in hospital- clear --> full --> low fiber and what to expect at each stage along with s/sx intolerance. RD will meet c pt at bedside on 12/14 to provide d/c paperworks on low fiber MNT and gradual increase in dietary fiber. Electronically Signed by: Irma Adan 12/07/21 15:57 Clinical Dietitian [address] [address]
[2021-12-13] VITALS (12 sets, daily range): BP systolic 119–155; BP diastolic 61–82; PULSE 59–85; RESP 14–18; TEMP 36.4–37; O2SAT 96–99; BMI 25.6
--- NOTE | 2021-12-13 | PATH_ITS ---
[facility] Accession Number: [id number] . 01 Material submitted: . ileum - RIGHT COLON AND TERMINAL ILEIUM . 01 Diagnosis: Right Colon and Terminal Ileum, Segmental Resection: 1. Tubular adenoma. 2. Submucosal pigment consistent with tattoo ink. 3. Twenty-three (23) lymph nodes examined; negative for metastatic carcinoma. 4. No evidence of invasive carcinoma or high-grade dysplasia. Please see comment. MRV 12/20/2021 0933 Local . 01 Comment: The minimum pathologic stage based on the prior biopsy ([id number]) and the current resection is pT1 pN0 (AJCC 8th Edition). . 01 Electronically signed: . Saundra Quiroga MD, Pathologist NPI- [id number] . 01 Gross description: . The specimen is received in formalin labeled with the patient's name and right colon and terminal ileum, and consists of an ileocecectomy specimen with a 2.0 x 1.8 cm fragment of ileum connected to a 15.4 x 2.5 cm fragment of colon that is previously opened 7.5 cm starting from the distal margin through the area of presumed tattoo ink. The proximal ileal margin is inked blue, the distal colon margins is inked black, and the radial margin is inked green. The serosa is martin and roughened with a large amount of attached mesentery extending out to 10.4 cm. There are dark black areas on the serosa possibly consistent with tattoo ink measuring approximately 2.5 cm in greatest dimension and measuring 4.8 cm from the nearest distal margin. No appendix is identified and a small staple line at the base of the cecum is noted consistent with previous appendectomy scar. Opening the remaining specimen reveals an area of submucosal coloration consistent with tattoo ink and correlating to the previously mentioned serosal discoloration. No scar is grossly identified within the tattoo inked area. This inked area measures greater than 3 cm from all margins. The remaining mucosa is martin and velvety with normal-appearing folds and at least five sessile polyps measuring up to 0.3 cm in greatest dimension. The edge average 0.3 cm thick with no diverticular or additional lesions identified. Palpating the pericolonic fat reveals 20 martin lymph node candidates ranging from 0.2 to 0.7 cm in greatest dimension. Roof Painter sections are submitted as follows: A1: Proximal margin en face and sales representative sales manager radial margin en face. A2-A3: Distal margin en face. A4: Ileocecal valve. A5-A6: Roof Painter colon with sessile polyps. A7-A11: Entire tattoo inked area. A12: Four intact lymph node candidates. A13: Four intact lymph node candidates. A14: Five intact lymph node candidates. A15: Four intact lymph node candidates. A16: Three intact lymph node candidates. ([id number]) . Additional palpation of the pericolonic fat near the distal margin reveals a single martin lymph node candidate measuring 0.5 cm in greatest dimension. Submitted entirely in cassette A17. ([id number]) /SHERIDAN 12/16/2021 [facility] Local . 01 Pathologist provided ICD-10: D12.6 . 01 CPT . 593187 Performed at: 01 [facility] [address] [place] [address], [place], [place] [id number] MD Jovanny Anderson MD Phone: [phone]
[2021-12-13] MEDS: LACTATED RINGERS 1,000 ML 100 ML IV ×3 (07:02→22:44)
[2021-12-13] MEDS: SCOPOLAMINE 1 PATCH TOP (07:41)
--- NOTE | 2021-12-13 07:45 | PM.PREOP ---
Pre-operative Note COVID-19 COVID-19 status: Negative Result date/Date tested (Pos, Neg/Pending): 12/12/21 Interval Note History & Physical reviewed/Exam performed by Physician: Yes Changes to H&P: No ASA Class (for procedural sedation): II
[2021-12-13] MEDS: AMPICILLIN/SULBACTAM 3 GM 3 GM in SODIUM CHLORIDE 0.9% 100 ML IV (08:05)
--- NOTE | 2021-12-13 08:25 | SUR.OPER ---
Lithotomy on padded OR bed. [place] Pocket Pad Positioner under torso. Head on pillow, arms padded and tucked at sides. Legs secured in padded yellow fins stirrups.
[2021-12-13] MEDS: LIDOCAINE 1% 20 ML INJ (08:45)
[2021-12-13] MEDS: EPINEPHrine 1 MG/ML 0.15 MG INJ (08:46)
[2021-12-13] MEDS: BUPIVACAINE 0.5% (PF) VIAL 20 ML INJ (08:47)
--- NOTE | 2021-12-13 08:58 | SUR.OPER ---
SECOND IV STARTED RIGHT WRIST X 1 ATTEMPT 20 GUAGE PER ANESTHESIA ORDER
--- NOTE | 2021-12-13 10:47 | PM.OP.1 ---
Operative Date/Time/Diagnoses Date of procedure: 12/13/21 Time of procedure: 10:47 Pre-op diagnosis: Right colon adenocarcinoma Post-op diagnosis: same Procedure & Clinicians Procedure: Laparoscopic assisted right hemicolectomy Same procedure as scheduled: Yes Surgeon: Rogers Bal Insect Control Inspector: Zoe Hooker Operative Notes Procedure in detail: Operation: Laparoscopic assisted right hemicolectomy Surgeon: Perla CONTRERAS Insect Control Inspector: Zoe Hooker provided assistance with exposure, retraction as well as creation of the anastomosis. Anesthesia: General endotracheal anesthesia The patient is a 76-year-old woman who had a colonoscopy by Dr. Yin: Recently with findings of superficially invasive adenocarcinoma arising in a polyp at the hepatic flexure. She had had a prior appendectomy for a benign appendiceal tumor at [facility] by Dr. Suggs.. Unasyn was administered. The patient was brought to the operating room and placed on the table in the supine position. General endotracheal anesthesia was induced. Phillips catheter was placed. The abdomen was prepped and draped in the usual fashion and a time-out was performed. A 1 cm infraumbilical incision was created. Dissection was carried down to the fascia which was scored in the midline with cautery. The peritoneum was pierced with a Peon clamp. A Kaye port was placed and the abdomen was insufflated to 15 mmHg. The camera was inserted and there was no evidence of any injury from the entry. 5 mm ports were placed in the suprapubic position, left lower quadrant, right upper quadrant and left upper quadrant under direct vision. We explored the abdomen. There were some adhesions of omentum to the anterior abdominal wall as well as to the cecum and of the cecum to sidewall. There was tattoo ink at the hepatic flexure as expected. We started with lysis of adhesions taking down the adhesions to the anterior abdominal wall as well as around the cecum and we visualized some jalil from her prior appendectomy. We visualized and protected the ureter. We reflected the cecum and distal terminal ileum in a medial and superior direction. We started taking down the omental adhesions to the gallbladder fossa until we could clearly see 1st portion the duodenum. We carefully dissected the right transverse mesocolon off of duodenum staying in the natural cleavage plane. We then took down the hepatic flexure and the right colon in the same plane. Did see some tattoo ink in a few lymph nodes in the proximal transverse mesocolon. Once the bowel was sufficiently mobilized we removed the laparoscopic equipment and created a 5 cm periumbilical incision. A small Neal retractor was placed into the wound and the right colon was exteriorized. We then created mesenteric windows along the mesenteric border of terminal ileum and another along the proximal transverse colon just proximal to right branch of the middle colic artery. We then lined up the terminal ileum and transverse colon and a 3-0 silk stitch was placed at the crotch. Blue towels were placed around the bowel and enterotomies were created. A [id number]-[id number] functional end-to-end anastomosis was created using the 75 mm linear BERTHA stapler with blue loads. The LigaSure was used to take down the mesentery. The ileocolic pedicle was tied with two 0 silk sutures. Multiple interrupted 3-0 silk sutures were used to imbricate the staple line. The mesenteric defect was closed with a running 2-0 Vicryl. The anastomosis appeared well perfused and patent and allowed to fall back into the right abdomen. We then transition to a clean closure and injected additional local into the plane above and below the fascia. The fascia was then closed with a running 0 PDS suture. The skin incisions were closed with 4 Monocryl and Steri-Strips. EBL: 30 mL Specimen: Terminal ileum and right colon. Post-operative Condition: stable Disposition: PACU
[2021-12-13] MEDS: fentaNYL 100 MCG/2 ML INJ IV (10:56)
[2021-12-13] MEDS: OXYCODONE IR 5 MG TABLET PO (11:16)
[2021-12-13] MEDS: HYDROMORPHONE 0.5 MG INJ IV (12:03)
[2021-12-13] MEDS: HYDROCODONE/ACET 5/325 TABLET 1 TAB PO ×3 (14:14→22:43)
[2021-12-13] MEDS: ACETAMINOPHEN 325 MG TABLET 650 MG PO (14:14)
[2021-12-13] MEDS: HYDROXYCHLOROQUINE 200 MG TABLET PO (16:20)
[2021-12-13] MEDS: ATORVASTATIN 20 MG TABLET 10 MG PO (22:42)
[2021-12-14 00:18] VITALS: BP 107/50; PULSE 60; RESP 16; TEMP 37; O2SAT 96
[2021-12-14] MEDS: HYDROCODONE/ACET 5/325 TABLET 1 TAB PO ×4 (03:01→20:18)
[2021-12-14 04:45] VITALS: BP 106/56; PULSE 57; RESP 16; TEMP 36.8; O2SAT 100
[2021-12-14 05:45] LABS: Add Manual Diff / Slide Review NO; Basophils Absolute Auto 0 /uL (0-100); Basophils Percent Auto 0.6 % (0-2); Eosinophils Absolute Auto 0 /uL (0-450); Eosinophils Percent Auto 0.3 % (2-4); Hematocrit 34.4 % (36-46); Hemoglobin 11.5 g/dL (12.0-16.0); Lymphocytes Absolute Auto 1500 /uL (1100-4500); Lymphocytes Percent Auto 23.6 % (25-40); Mean Corpuscular HGB Conc 33.5 % (30-36); Mean Corpuscular Hemoglobin 29.9 PG (26-34); Mean Corpuscular Volume 89.1 fL (80-100); Monocytes Absolute Auto 600 /uL (0-900); Monocytes Percent Auto 9.1 % (3-14); Neutrophils Absolute Auto 4100 /uL (1500-7000); Neutrophils Percent Auto 66.4 % (50-75); Platelet Count 147 X10^3/uL (150-400); Red Blood Cell Count 3.86 X10^6/uL (4.0-5.2); White Blood Cell Count 6.2 X10^3/uL (4.5-11.0)
[2021-12-14 05:57] LABS: BUN Creatinine Ratio 8.5 (6-22); Blood Urea Nitrogen 5 mg/dL (7-17); Calcium 8.3 mg/dL (8.4-10.2); Carbon Dioxide 28 mmol/L (22-32); Chloride 105 mmol/L (98-107); Estimated Glomerular Filt Rate > 60 mL/min (>60); Glucose 97 mg/dL (80-110); HEMOLYSIS < 15 (0-50); Potassium 3.5 mmol/L (3.4-5.1); Sodium 137 mmol/L (137-145)
[2021-12-14] MEDS: HYDROMORPHONE 0.5 MG INJ IV (07:39)
[2021-12-14] MEDS: HYDROXYCHLOROQUINE 200 MG TABLET PO ×2 (07:59→16:14)
[2021-12-14 08:55] VITALS: BP 115/53; PULSE 75; RESP 18; TEMP 37.1; O2SAT 99
[2021-12-14] MEDS: POTASSIUM CHLORIDE 20 MEQ TAB PO (09:48)
[2021-12-14] MEDS: ACETAMINOPHEN 325 MG TABLET 650 MG PO (09:51)
[2021-12-14 11:30] VITALS: BP 114/57; PULSE 57; RESP 16; TEMP 36.9; O2SAT 99
--- NOTE | 2021-12-14 12:32 | P.PN_ITS ---
Subjective Subjective Date Patient Seen: 12/14/21 Time Patient Seen: 12:32 Interval history: Candy feels well today. Pain has been well-controlled with oral and IV pain medications. Exam Vital Signs (past 8 hours): - 12/14/21 04:45 12/14/21 08:55 Temperature 98.3 F 98.7 F Pulse Rate 57 L 75 Respiratory Rate 16 18 Blood Pressure 106/56 L 115/53 L Pulse Oximetry 100 99 Oxygen Flow Rate 0 Oxygen Delivery Method Room Air Oxygen Flow Rate 0 Narrative Exam Narrative: Sitting comfortably in a chair Abdomen is soft, nontender Objective Labs Result Diagrams: 12/14/21 05:25 12/14/21 05:25 Labs: Laboratory Results - last 24 hr 12/14/21 12/14/21 05:25 05:25 WBC 6.2 RBC 3.86 L Hgb 11.5 L Hct 34.4 L MCV 89.1 MCH 29.9 MCHC 33.5 RDW 13.0 Plt Count 147 L Neut % (Auto) 66.4 Lymph % (Auto) 23.6 L [place] % (Auto) 9.1 Eos % (Auto) 0.3 L Baso % (Auto) 0.6 Neut # (Auto) 4100 Lymph # (Auto) 1500 [place] # (Auto) 600 Eos # (Auto) 0 Baso # (Auto) 0 Sodium 137 Potassium 3.5 Chloride 105 Carbon Dioxide 28 BUN 5 L Creatinine 0.59 Estimated GFR > 60 BUN/Creatinine Ratio 8.5 Glucose 97 Calcium 8.3 L PFSH Medical History (Updated 12/07/21 @ 10:18 by Hedy Mayer RN) Acne (~1961) Anesthesia complication BCC (basal cell carcinoma) Cataracts, bilateral (~2017) Chicken pox Colon cancer Colon polyps (~2007) Elevated blood pressure reading without diagnosis of hypertension Endometrial thickening on ultrasound Endometriosis Fibroids Ganglion cyst of both wrists Hearing loss (~2006) Heavy menstrual period Hemorrhoid (~2007) HLD (hyperlipidemia) Infertility Measles Mixed hyperlipidemia Mumps Neoplasm of uncertain behavior of appendix Osteopenia Painful menstrual periods Rheumatoid arthritis (~2003) Rubella Skin cancer Tinnitus (~1992) Surgical History (Updated 12/07/21 @ 10:17 by Hedy Mayer RN) Hx of appendectomy (06/2018) Hx of bilateral cataract extraction (04/2021) Hx of colonoscopy (10/24/21) Hx of colonoscopy with polypectomy (2007) Hx of colonoscopy with polypectomy (10/10/21) Hx of hand surgery (04/2016) Hx of left inguinal hernia repair Hx of myomectomy (12/1981) S/P excision of lipoma (01/2016) Social History household members: spouse Smoking Status: Former smoker alcohol intake: current Assessment & Plan Assessment and plan (1) Colon cancer: Problem details: Colonoscopy 10/10/2021: Dr. Noah Singleton Hepatic Flexure, Polyp, Biopsy: Superficially invasive adenocarcinoma, arising in a background of sessile serrated adenoma with high grade dysplasia. Loss of expression of MLH1 and PMS2 mismatch repair proteins, by immunohistochemistry. Qualifiers: Colon location: hepatic flexure Qualified Code(s): C18.3 - Malignant neoplasm of hepatic flexure Status: Acute Plan Continue clear liquid diet Await flatus before advancing diet Will start Lovenox tonight. Time Spent With Patient Critical Care time: I spent a total of [] minutes of critical care time on this patient's care today; this time is exclusive of procedural time.
--- NOTE | 2021-12-14 12:55 | CM.IDA ---
Discharge Assessment Patient is 76 y/o female who presents to after assisted right hemicolectomy surgery on 12/13/[address] Bal. Patient has hx of Colon cancer, Mixed hyperlipidemia and Rheumatoid arthritis. Patient's PCP is Dr. Jeffery, patient has Medicare and [employer] insurance. Patient has post op f/u appt with surgeon Dr. Bal on 12/26/21. PAVING MACHINE OPERATOR enters room to meet with patient. Patient presents as A/Ox3. Patient endorses she resides at home with her at a 2 level home (bedroom and bathroom on main level). Patient endorses she is independent with ADLs at baseline and states that she has been able to ambulate to bathroom with walker and standby assist. HYDRO PNEUMATIC TESTER reports they have observed patient independently get to the bathroom and also seen assist patient with ease. Patient endorses that she has new FWW that she got from [employer]. Patient endorses that her is a support at home. Per Hospitalist in rounds, patient may need 3-5 days post op for recovery. Patient endorses she is still on a liquid diet and slowly starting to feel better. No DCP needs at this time per patient. No PT needs at this time due to patient's ability to ambulate. Plan: continue to f/u with POC and patient's post-op recovery. MIRANDA Forrest Discharge Planning/Care Management CM Discharge Assessment Start: 12/14/21 12:52 Freq: Status: Active Protocol: Document 12/14/21 12:52 LN (Rec: 12/14/21 12:55 LN [id number]) Discharge Planning Assessment Assigned Umbrella Tipper Hand MIRANDA Gabriel Advance Directives? Yes Advance Directives on File No History Provided By Patient,Medical Record Has Patient been admitted in last 30 No days? Prior Living Arrangements House Household Members spouse Type of transporation used prior to Drives own vehicle admit Independent with ADL's Yes Is patient alert and oriented? Yes DME Already Rented / Owned FWW / Walker Discharge Plan Home Transportation Arrangement POV with spouse Referrals Initiated None needed Please Provide Date Initial DC 12/14/21 Assessment Was Performed
[2021-12-14 16:00] VITALS: BP 126/56; PULSE 93; RESP 18; TEMP 36.9; O2SAT 99
[2021-12-14] MEDS: ENOXAPARIN 40 MG/0.4 ML SYRINGE SUBCUT (17:07)
[2021-12-14 19:40] VITALS: BP 138/67; PULSE 69; RESP 16; TEMP 36.9; O2SAT 98
[2021-12-14] MEDS: ATORVASTATIN 20 MG TABLET 10 MG PO (20:18)
[2021-12-15] VITALS: BP 136/68; PULSE 62; RESP 16; TEMP 37; O2SAT 95
[2021-12-15] MEDS: ACETAMINOPHEN 325 MG TABLET 650 MG PO (00:50)
[2021-12-15 04:00] VITALS: BP 124/56; PULSE 55; RESP 16; TEMP 37; O2SAT 96
--- NOTE | 2021-12-15 04:02 | PC.NURSE ---
Pt is AxOx4, independent and cooperative. VSS, pt c/o pain and recieved [place] and Tylenol once overnight with good effect. Incision on abdomen looks clean and dry. Otherwise, pt slept well. No problem identified. Continue monitor.
[2021-12-15 06:55] LABS: BUN Creatinine Ratio 7.5 (6-22); Blood Urea Nitrogen 5 mg/dL (7-17); Calcium 8.5 mg/dL (8.4-10.2); Carbon Dioxide 28 mmol/L (22-32); Chloride 106 mmol/L (98-107); Estimated Glomerular Filt Rate > 60 mL/min (>60); Glucose 95 mg/dL (80-110); HEMOLYSIS < 15 (0-50); Potassium 3.5 mmol/L (3.4-5.1); Sodium 138 mmol/L (137-145)
[2021-12-15] MEDS: HYDROCODONE/ACET 5/325 TABLET 1 TAB PO ×2 (07:55→14:18)
[2021-12-15] MEDS: HYDROXYCHLOROQUINE 200 MG TABLET PO ×2 (07:55→17:25)
[2021-12-15 08:00] VITALS: BP 142/69; PULSE 58; RESP 18; TEMP 36.8; O2SAT 98
--- NOTE | 2021-12-15 10:14 | PM.PN.1 ---
Subjective Subjective Date Patient Seen: 12/15/21 Time Patient Seen: 10:14 Interval history: Pain is well controlled with oral agents. She has been tolerating a clear liquid diet and has passed some gas. Exam Vital Signs (past 8 hours): - 12/15/21 04:00 12/15/21 08:00 Temperature 98.6 F 98.3 F Pulse Rate 55 L 58 L Respiratory Rate 16 18 Blood Pressure 124/56 L 142/69 H Pulse Oximetry 96 98 Oxygen Flow Rate 0 0 Oxygen Delivery Method Room Air Oxygen Flow Rate 0 Narrative Exam Narrative: Well-healed incisions Abdomen is soft Objective Labs Result Diagrams: 12/14/21 05:25 12/15/21 06:20 Labs: Laboratory Results - last 24 hr 12/15/21 06:20 Sodium 138 Potassium 3.5 Chloride 106 Carbon Dioxide 28 BUN 5 L Creatinine 0.67 Estimated GFR > 60 BUN/Creatinine Ratio 7.5 Glucose 95 Calcium 8.5 PFSH Medical History (Updated 12/15/21 @ 10:15 by Rogers Bal MD) Acne (~1961) Anesthesia complication BCC (basal cell carcinoma) Cataracts, bilateral (~2017) Chicken pox Colon cancer Colon polyps (~2007) Elevated blood pressure reading without diagnosis of hypertension Endometrial thickening on ultrasound Endometriosis Fibroids Ganglion cyst of both wrists Hearing loss (~2006) Heavy menstrual period Hemorrhoid (~2007) HLD (hyperlipidemia) Infertility Measles Mixed hyperlipidemia Mumps Neoplasm of uncertain behavior of appendix Osteopenia Painful menstrual periods Rheumatoid arthritis (~2003) Rubella Skin cancer Tinnitus (~1992) Surgical History (Updated 12/07/21 @ 10:17 by Hedy Mayer RN) Hx of appendectomy (06/2018) Hx of bilateral cataract extraction (04/2021) Hx of colonoscopy (10/24/21) Hx of colonoscopy with polypectomy (2007) Hx of colonoscopy with polypectomy (10/10/21) Hx of hand surgery (04/2016) Hx of left inguinal hernia repair Hx of myomectomy (12/1981) S/P excision of lipoma (01/2016) Social History household members: spouse Smoking Status: Former smoker alcohol intake: current Assessment & Plan Assessment and plan (1) Postoperative examination: Status: Acute Plan Candy is doing well on postop day 2 from her laparoscopic right hemicolectomy. Will advance to regular diet today. Anticipate discharge home tomorrow. Dr. Hooker will see her for tomorrow. Time Spent With Patient Critical Care time: I spent a total of [] minutes of critical care time on this patient's care today; this time is exclusive of procedural time.
--- NOTE | 2021-12-15 10:37 | PC.NURSE ---
pt has no PIV on lt. hand.
[2021-12-15 12:00] VITALS: BP 121/61; PULSE 68; RESP 17; TEMP 36.8; O2SAT 100
--- NOTE | 2021-12-15 14:35 | DIET.CONS2 ---
Dietary Inpatient Consultation Note Admission Date: 12/13/2021 06:24 RD f/u to provide d/c paperwork for pt with hemicolectomy. Pt with +BM and diet advanced to general going home tomorrow morning. Pt up walking around room when RD visited. RD provided handouts on low fiber diet to follow x2w and handout on gradually increasing fiber. All pt and pt spouse questions answered. Diet: 12/15/21 Lunch Regular [General (Regular) Diet] Diet Modifications: low fiber Nutrition Percent Meal Consumed 50% 12/15/21 13:15 Percent Meal Consumed 100% 12/15/21 08:53 Percent Meal Consumed 100% 12/14/21 18:00 Percent Meal Consumed 100% 12/14/21 09:50 Electronically Signed by: Irma Adan 12/15/21 14:35 Clinical Dietitian [address] [address]
[2021-12-15 16:08] VITALS: BP 126/54; PULSE 81; RESP 16; TEMP 37.2; O2SAT 98
[2021-12-15] MEDS: ENOXAPARIN 40 MG/0.4 ML SYRINGE SUBCUT (17:25)
[2021-12-15 19:50] VITALS: BP 142/70; PULSE 75; RESP 18; TEMP 37.3; O2SAT 96
[2021-12-15] MEDS: ATORVASTATIN 20 MG TABLET 10 MG PO (20:10)
[2021-12-15] MEDS: SODIUM CHLORIDE 0.9% FLUSH 10 ML IV (20:18)
[2021-12-16 01:14] VITALS: BP 148/66; PULSE 74; RESP 18; TEMP 37.2; O2SAT 96
[2021-12-16] MEDS: ONDANSETRON 4 MG/2 ML INJ IV ×2 (01:43→10:54)
[2021-12-16] MEDS: HYDROCODONE/ACET 5/325 TABLET 1 TAB PO (01:43)
[2021-12-16 06:08] VITALS: BP 121/68; PULSE 60; RESP 16; TEMP 36.9; O2SAT 98
--- NOTE | 2021-12-16 08:20 | PC.NURSE ---
Addendum entered by Barbara Blackburn R.N. 12/16/21 18:43: Patient had an emesis in the bathroom. Scopalamine patch placed and patient has been fine. Denies nausea and is independent in room. Discharge stopped and patient will go home tomorrow as she was having more nausea earlier. Original Note: Assess- Patient has 5 small incisions that are cdi with steri strips on the 4 outside and the middle incision has a tegaderm in place. No drainage noted. Patients bowel sounds are hypoactive x4. No bloating noted to abdomen. Up adlib and steady on feet.
[2021-12-16] MEDS: HYDROXYCHLOROQUINE 200 MG TABLET PO ×2 (08:44→18:33)
[2021-12-16] MEDS: SODIUM CHLORIDE 0.9% FLUSH 10 ML IV ×2 (08:45→20:07)
[2021-12-16 10:55] VITALS: BP 127/69; PULSE 67; RESP 18; TEMP 36.7; O2SAT 97
[2021-12-16 13:55] VITALS: BP 131/63; PULSE 68; RESP 16; TEMP 36.5; O2SAT 97
[2021-12-16] MEDS: SCOPOLAMINE 1 PATCH TOP (15:25)
[2021-12-16] MEDS: ENOXAPARIN 40 MG/0.4 ML SYRINGE SUBCUT (18:33)
[2021-12-16 18:55] VITALS: BP 136/68; PULSE 77; RESP 16; TEMP 36.9; O2SAT 97
[2021-12-16] MEDS: ACETAMINOPHEN 325 MG TABLET 650 MG PO (20:06)
[2021-12-16] MEDS: ATORVASTATIN 20 MG TABLET 10 MG PO (20:07)
[2021-12-17 00:15] VITALS: BP 118/56; PULSE 64; RESP 18; TEMP 36.8; O2SAT 96
[2021-12-17 04:00] VITALS: BP 110/59; PULSE 60; RESP 18; TEMP 36.8; O2SAT 97
[2021-12-17 08:18] VITALS: BP 115/46; PULSE 70; RESP 16; TEMP 36.4; O2SAT 97
[2021-12-17] MEDS: HYDROXYCHLOROQUINE 200 MG TABLET PO (08:41)
[2021-12-17 09:43] LABS: Add Manual Diff / Slide Review NO; Basophils Absolute Auto 0 /uL (0-100); Basophils Percent Auto 0.4 % (0-2); Eosinophils Absolute Auto 200 /uL (0-450); Eosinophils Percent Auto 3.9 % (2-4); Hematocrit 36.8 % (36-46); Hemoglobin 12.4 g/dL (12.0-16.0); Lymphocytes Absolute Auto 1100 /uL (1100-4500); Mean Corpuscular HGB Conc 33.9 % (30-36); Mean Corpuscular Hemoglobin 29.9 PG (26-34); Mean Corpuscular Volume 88.4 fL (80-100); Monocytes Absolute Auto 300 /uL (0-900); Monocytes Percent Auto 6.8 % (3-14); Neutrophils Absolute Auto 2500 /uL (1500-7000); Neutrophils Percent Auto 60.9 % (50-75); Platelet Count 173 X10^3/uL (150-400); Red Blood Cell Count 4.16 X10^6/uL (4.0-5.2); Red Cell Distribution Width 12.7 % (11.6-14.8)
--- NOTE | 2021-12-17 09:48 | PM.PNPO.1 ---
Subjective Subjective Date Patient Seen: 12/17/21 Time Patient Seen: 09:48 Interval history: Discharge held yesterday due to severe nausea after a meal. Better today. Still passing gas and having BMs Exam Vital Signs (past 8 hours): - 12/17/21 04:00 12/17/21 08:18 Temperature 98.3 F 97.6 F Pulse Rate 60 70 Respiratory Rate 18 16 Blood Pressure 110/59 L 115/46 L Pulse Oximetry 97 97 Oxygen Flow Rate 0 Oxygen Delivery Method Room Air Oxygen Flow Rate 0 Narrative Exam Narrative: Wounds dry and intact, no infection. Abdomen is soft. Objective Labs Result Diagrams: 12/17/21 09:27 12/15/21 06:20 Labs: Laboratory Results - last 24 hr 12/17/21 09:27 WBC 4.0 L RBC 4.16 Hgb 12.4 Hct 36.8 MCV 88.4 MCH 29.9 MCHC 33.9 RDW 12.7 Plt Count 173 Neut % (Auto) 60.9 Lymph % (Auto) 28.0 Mcdonald % (Auto) 6.8 Eos % (Auto) 3.9 Baso % (Auto) 0.4 Neut # (Auto) 2500 Lymph # (Auto) 1100 Mcdonald # (Auto) 300 Eos # (Auto) 200 Baso # (Auto) 0 PFSH Medical History (Updated 12/15/21 @ 10:15 by Rogers Bal MD) Acne (~1961) Anesthesia complication BCC (basal cell carcinoma) Cataracts, bilateral (~2017) Chicken pox Colon cancer Colon polyps (~2007) Elevated blood pressure reading without diagnosis of hypertension Endometrial thickening on ultrasound Endometriosis Fibroids Ganglion cyst of both wrists Hearing loss (~2006) Heavy menstrual period Hemorrhoid (~2007) HLD (hyperlipidemia) Infertility Measles Mixed hyperlipidemia Mumps Neoplasm of uncertain behavior of appendix Osteopenia Painful menstrual periods Rheumatoid arthritis (~2003) Rubella Skin cancer Tinnitus (~1992) Surgical History (Updated 12/07/21 @ 10:17 by Hedy Mayer RN) Hx of appendectomy (06/2018) Hx of bilateral cataract extraction (04/2021) Hx of colonoscopy (10/24/21) Hx of colonoscopy with polypectomy (2007) Hx of colonoscopy with polypectomy (10/10/21) Hx of hand surgery (04/2016) Hx of left inguinal hernia repair Hx of myomectomy (12/1981) S/P excision of lipoma (01/2016) Social History household members: spouse Smoking Status: Former smoker alcohol intake: current Assessment & Plan Post-op Postoperative Procedures: Procedures Operation Date: 12/13/21 07:45 Actual Procedure Side Surgeon p Laparoscopic Assisted Right Hemicolectomy Rogers Bal MD Postoperative status: doing well Postoperative plan: see orders Postoperative plan narrative: Likely discharge today, will check results of labs Time Spent With Patient Time with patient: 15-24 minutes
[2021-12-17 09:53] LABS: Alanine Aminotransferase 25 IU/L (<35); Albumin 3.4 g/dL (3.5-5.0); Albumin Globulin Ratio 1.3 (1.0-2.8); Alkaline Phosphatase 42 U/L (38-126); Aspartate Aminotransferase 32 IU/L (14-36); BUN Creatinine Ratio 9.2 (6-22); Bilirubin Total 0.6 mg/dL (0.2-1.3); Blood Urea Nitrogen 6 mg/dL (7-17); Calcium 8.5 mg/dL (8.4-10.2); Carbon Dioxide 26 mmol/L (22-32); Chloride 103 mmol/L (98-107); Estimated Glomerular Filt Rate > 60 mL/min (>60); Globulin 2.7 g/dL (1.7-4.1); Glucose 144 mg/dL (80-110); HEMOLYSIS < 15 (0-50); Potassium 3.6 mmol/L (3.4-5.1); Sodium 136 mmol/L (137-145); Total Protein 6.1 g/dL (6.3-8.2)
--- NOTE | 2021-12-17 10:39 | PC.NURSE ---
Assess- Patient is alert and oriented x4, she denies pain or discomfort. She is not experiencing any nausea. Ate some cream of rice for breakfast and she tolerated it well. She has been ambulating in the halls and tolerating well. at bedside. Patient is going to eat lunch and see how she does and then may go home.
--- NOTE | 2021-12-17 12:49 | CM.DPNOTE ---
Discharge Planning Note: Met briefly with patient who states she is feeling much better. She is eating cage unloader and small amounts for now. She is hoping to be released after lunch if she does well. Plan: Dc when medically cleared. No DCP needs. to transport. Jaz Mcghee RN/DCP
[2021-12-17 13:34] VITALS: BP 106/57; PULSE 75; RESP 16; TEMP 36.8; O2SAT 100
== END 2021-12-17 14:06 | disposition home or self-care (01) | DRG 331 ==
PROVIDERS: Surgery; Admitting Provider Surgery; PCP Internal Medicine; Referring Provider Surgery; Visit Provider Surgery
PROC: 0DTE0ZZ Resection of Large Intestine, Open Approach (ICD-10-PCS; principal; 2021-12-13 07:45)
DX: C18.3 Malignant neoplasm of hepatic flexure (principal); R11.0 Nausea; E78.5 Hyperlipidemia, unspecified; M06.9 Rheumatoid arthritis, unspecified; Z87.891 Personal history of nicotine dependence; Z20.822 Contact with and (suspected) exposure to COVID-19
CPT/HCPCS: 00860; 36415; 44205; 80048; 80053; 85025; 87635; C9803; J0171; J0295; J0330; J1100; J1170; J1650; J2405; J2704; J3010

== ENCOUNTER → 2022-04-15 08:22 | Outpatient (CLI) | payer MEDICARE, OTHER, SELFPAY ==
[2021-12-13 12:00] VITALS: BMI 25.6
--- NOTE | 2022-04-15 08:23 | DI.MG.S_ITS ---
BILATERAL DIGITAL SCREENING MAMMOGRAM 3D/2D WITH CAD: 04/15/2022 CLINICAL: Routine screening. Family history of breast cancer. Comparison is made to exams dated: 04/08/2021 mammogram, 03/19/2020 mammogram, 12/04/2018 mammogram, and 10/17/2017 mammogram - [facility]. Both breasts are heterogeneously dense, which may obscure small masses (category c / 51-75% glandular tissue). Current study was also evaluated with a Computer Aided Detection (CAD) system. There are benign calcifications in both breasts. No significant masses, calcifications, or other findings are seen in either breast. There has been no significant interval change. IMPRESSION: BENIGN There is no mammographic evidence of malignancy. A 1 year screening mammogram is recommended. Based on the Tyrer Cuzick model (a risk assessment model) the patient's lifetime risk is 13.2% and her 10 year risk is 13.2%. According to the ACR, ACS, and NCCN guidelines, an annual breast MRI exam along with mammogram is recommended if the patient's lifetime risk is 20% or greater. This exam was interpreted at Station ID: [id number]. NOTE: For mammograms, a report in lay terms will be sent to the patient. Approximately 15% of breast malignancies will not be visualized mammographically. In the management of a palpable breast mass, a negative mammogram must not discourage biopsy of a clinically suspicious lesion. Electronically Signed By: Aleksandar saavedra/jasmyne:04/17/2022 08:25:02 letter sent: Normal Exam ACR BI-RADS Category 2: Benign Finding(s) 3342F
== END ==
PROVIDERS: PCP Internal Medicine; Referring Provider Internal Medicine; Visit Provider Internal Medicine
DX: Z12.31 Encounter for screening mammogram for malignant neoplasm of breast (principal); Z80.3 Family history of malignant neoplasm of breast
CPT/HCPCS: 77063; 77067

== ENCOUNTER → 2022-08-14 11:09 | Outpatient (CLI) | payer MEDICARE, OTHER, SELFPAY ==
[2021-12-13 12:00] VITALS: BMI 25.6
--- NOTE | 2022-08-14 11:10 | DI.US.S_ITS ---
PROCEDURE: US THYROID INDICATIONS: FOLLOW UP CT THYROID NODULES TECHNIQUE: Real-time scanning was performed of the thyroid gland, with image documentation. COMPARISON: [facility], CT, CT CHEST ABD PEL W CON, 10/28/2021, 11:23. FINDINGS: Right: Thyroid lobe measures 4.6 x 2.1 x 1.8 cm, and is homogeneous in echotexture. Left: Thyroid lobe measures 3.8 x 0.5 x 0.7 cm, and is homogenous in echotexture. Isthmus: 2.3 mm thick. Nodule number: 1 Location: Right lateral Size: 3.6 x 2.1 x 1.5 cm. Composition: Solid Echogenicity: Hypoechoic Shape: wider than tall. Margins: Smooth Echogenic foci: Punctate Total points: 7 ACR TI-RADS category: 5 Nodule number: 2 Location: Right superior mid Size: 1.4 x 0.9 x 0.9 cm. Composition: Solid Echogenicity: Hypoechoic Shape: wider than tall. Margins: Smooth Echogenic foci: None Total points: 4 ACR TI-RADS category: 4 Nodule number: 3 Location: Right inferior Size: 0.8 x 0.8 x 0.5 cm. Composition: Soft Echogenicity: Hypoechoic Shape: wider than tall. Margins: Smooth Echogenic foci: Macrocalcification Total points: 5 ACR TI-RADS category: 4 Nodule number: 4 Location: Left superior Size: 0.5 x 0.3 x 0.3 cm. Composition: Solid Echogenicity: Hypoechoic Shape: wider than tall. Margins: Smooth Echogenic foci: Punctate Total points: 7 ACR TI-RADS category: 5 IMPRESSION: Lesion 1 is considered category 5. Secondary to size, FNA is recommended. Lesion 2 is considered category 4. Secondary to size, imaging follow-up at 1, 3 and 5 years is recommended. It is unchanged compared to prior CT exam. Lesions 3 in 4 considered categories for and 5 respectively. Secondary to size, no further follow-up is recommended for lesion 3. Secondary to size, follow-up imaging yearly for 5 years is recommended for lesion 4. ACR TI-RADS definitions and recommendations: TI-RADS 1 (benign): 0 points. FNA not needed. TI-RADS 2 (not suspicious): 2 points. FNA not needed. TI-RADS 3 (mildly suspicious): 3 points. * FNA if 2.5 cm or larger, follow up if 1.5 cm or larger (at 1, 3, and 5 years). TI-RADS 4 (moderately suspicious): 4-6 points. * FNA if 1.5 cm or larger, follow up if 1 cm or larger (at 1, 2, 3, and 5 years). TI-RADS 5 (highly suspicious): 7 points or more. * FNA if 1 cm or larger, follow up if 0.5 cm or larger (every year for 5 years). Dictated by: Saniya Hernández M.D. on 08/14/2022 at 16:37 Approved by: Saniya Hernández M.D. on 08/14/2022 at 16:41
== END ==
PROVIDERS: PCP Internal Medicine; Referring Provider Internal Medicine; Visit Provider Internal Medicine
DX: E04.2 Nontoxic multinodular goiter (principal)
CPT/HCPCS: 76536

== ENCOUNTER → 2022-08-25 07:41 | Outpatient (CLI) | payer MEDICARE, OTHER, SELFPAY ==
[2021-12-13 12:00] VITALS: BMI 25.6
--- NOTE | 2022-08-25 | PATH_ITS ---
Note [facility] Accession Number: [id number] TESTS RESULT FLAG UNITS REF RANGE LAB Clinician Provided Cytology Information No. of containers..01 Other (Miscellaneous) No. of containers..02 Previously Prepared Cytology Slide Source: RIGHT THYROID NODULE #1 LATERAL DIAGNOSIS: RIGHT THYROID NODULE #1 LATERAL INCONCLUSIVE. BETHESDA CATEGORY III. ATYPIA OF UNDETERMINED SIGNIFICANCE. MOLECULAR STUDIES REQUESTED; RESULTS WILL BE REPORTED SEPARATELY. Pathologist ICD10: R89.6 Signed out by: Laila Givens MD, Pathologist NPI- [id number] Performed by: Josh Matias, [employer] ([facility]) Gross description: 30 CC, RED, CLEAR RECIEVED: IN CYTOLYT WITH 6 ALCOHOL FIXED AND 6 QUICK STAINED SLIDES ALSO 1 RNA VIAL WAS RECEIVED.VO /VDU 08/28/2022 [facility] Local FLAG LEGEND: L-Low Normal,H-High Normal,LL-Alert Low,HH-Alert High <-Panic Low,>-Panic High,A-Abnormal,AA-Critical Abnormal Performed at: 01 =[facility] [address], [place] [address] Jovanny Anderson MD, Performed at: [facility] [address], [place], [place] [id number] MD Jovanny Anderson MD Phone: [phone]
--- NOTE | 2022-08-25 07:42 | DI.US.S_ITS ---
PROCEDURE: US FINE NEEDLE ASPIRATION INDICATIONS: RIGHT THYROID NODULE LATERAL #1 FINE NEEDLE ASPIRATION TECHNIQUE: The indications, alternatives, benefits, risks, and complications of the procedure were explained to the patient. Written informed consent was obtained and placed in the chart. The thyroid region was examined sonographically and a site was chosen for ultrasound guided percutaneous sampling. The skin was prepared and draped in the usual fashion, and anesthetized with 1% lidocaine infiltrated from the skin down to the thyroid gland. Multiple passes were then performed, with contents emptied into an appropriate pathology specimen container. A bandage was applied to the area of access at completion of the study. COMPARISON: [facility], US, US THYROID, 08/14/2022, 11:17. FINDINGS: Location(s) of lesion(s) sampled: Right thyroid lobe [place]: 25 gauge hypodermic needles. Number of passes: 6 Medications: 1% lidocaine for local anaesthesia. Complications: None. IMPRESSION: Successful ultrasound-guided thyroid nodule fine needle aspiration, with cytology results pending. Please see chart below for management recommendations based on cytology results. [place] [facility] ReportingRecommendationsNon-diagnostic* Repeat US-guided FNA, with on-site cytology evaluation if possible. * Repeated non-diagnostic nodules without high suspicion US features: close observation vs surgical consult. * Consider surgery if nodule has high suspicion US features, grows >20% in 2 dimensions on followup, or patient has clinical risk factors for malignancy. Benign* If nodule has high suspicion US features: repeat US and FNA within 12 months. * If nodule has low to intermediate suspicion US features: repeat US at 12-24 months. If nodule grows (20% increase in at least 2 dimensions, with minimal increase of 2 mm or >50% change in volume), or development of new suspicious US features, then repeat FNA or continue followup. * If nodule has very low suspicion US features: followup US at >24 months. Atypia of undetermined significance, follicular lesion of undetermined significanceRepeat FNA, molecular testing, followup US, or surgical consult.Follicular neoplasm, suspicious for follicular neoplasmSurgical consult; also consider molecular testing. Suspicious for malignancySurgical consult.MalignantSurgical consult. Dictated by: Al Lopez M.D. on 08/25/2022 at 12:07 Approved by: Al Lopez M.D. on 08/25/2022 at 12:08
== END ==
PROVIDERS: PCP Internal Medicine; Referring Provider Internal Medicine; Visit Provider Internal Medicine
DX: E04.1 Nontoxic single thyroid nodule (principal)
CPT/HCPCS: 10005

== ENCOUNTER 2022-10-02 08:21 | Day surgery (SDC) | payer MEDICARE, OTHER, SELFPAY ==
[2021-12-13 12:00] VITALS: BMI 25.6
[2022-10-02 08:36] VITALS: BP 132/77; PULSE 83; RESP 16; TEMP 36.4; O2SAT 99; BMI 25.6
[2022-10-02] MEDS: LACTATED RINGERS 1,000 ML 42 ML IV (08:53)
--- NOTE | 2022-10-02 09:13 | PM.HP.1 ---
History of Present Illness History of Present Illness Date Patient Seen: 10/02/22 Time Patient Seen: 09:13 [place] [facility] Here for malignant colon polyp surveillance. She had a right hemicolectomy. [facility] Medical History Acne (~1961) Allergic rhinitis Anesthesia complication BCC (basal cell carcinoma) Cataracts, bilateral (~2017) Chicken pox Colon cancer Colon polyps (~2007) Endometrial thickening on ultrasound Endometriosis Essential hypertension Fibroids Ganglion cyst of both wrists Hearing loss (~2006) Heavy menstrual period Hemorrhoid (~2007) History of colon cancer HLD (hyperlipidemia) Infertility Measles Mixed hyperlipidemia Mumps Neoplasm of uncertain behavior of appendix Osteopenia Painful menstrual periods Rheumatoid arthritis (~2003) Rubella Skin cancer Thyroid nodule Tinnitus (~1992) Surgical History Hx of appendectomy (06/2018) Hx of bilateral cataract extraction (04/2021) Hx of colonoscopy (10/24/21) Hx of colonoscopy with polypectomy (2007) Hx of colonoscopy with polypectomy (10/10/21) Hx of hand surgery (04/2016) Hx of left inguinal hernia repair Hx of myomectomy (12/1981) S/P excision of lipoma (01/2016) Social History details: (Tre), no children, retired. household members: spouse Smoking Status: Former smoker alcohol intake: current Meds Home Medications and Allergies Home Medications Medication Instructions Recorded Confirmed Type gentamicin 0.1 % topical ointment 1 halima topical TIDP PRN Dry Nasal 04/14/16 10/02/22 History Passages ##0 celecoxib 100 mg capsule (Celebrex) 100 mg PO BID PRN pain #180 caps 08/09/22 10/02/22 Rx atorvastatin 10 mg tablet 10 mg PO DAILY #90 tabs 08/30/22 10/02/22 Rx hydroxychloroquine 200 mg tablet 200 mg PO BIDCC #180 tabs 08/30/22 10/02/22 Rx (Plaquenil) Allergies Allergy/AdvReac Type Severity Reaction Status Date / Time adhesive tape Allergy Mild Redness to Verified 10/02/22 08:29 skin with prolonged use nickel Allergy Rash, Verified 10/02/22 08:29 oozing to ears with earrings methotrexate AdvReac Intermediate elevated Verified 10/02/22 08:29 liver enzymes Review of Systems Review of Systems ROS: Yes All systems reviewed with the patient and are negative except as otherwise documented Exam Vital Signs (past 8 hours): - 10/02/22 08:36 Temperature 97.6 F Pulse Rate 83 Respiratory Rate 16 Blood Pressure 132/77 Pulse Oximetry 99 Oxygen Delivery Method Room Air Oxygen Delivery Method Room Air Const General: cooperative HENMT Head: normal to inspection Eyes General: appearance normal, both eyes and all related structures Neck Neck: normal visual inspection Chest Chest: normal inspection of the chest Resp Effort & Inspection: normal respiratory effort Cardio Rate: regular rate GI Inspection: normal to inspection Skin General: no rashes or lesions noted Neuro General: patient alert and patient awake Extrem General: normal to inspection and no pedal edema Psych Appearance: grossly normal Assessment & Plan Assessment & Plan narrative: 77-year-old female with a malignant colon polyp status post right hemicolectomy. Colonoscopy for surveillance is planned for today.
--- NOTE | 2022-10-02 10:14 | PM.OP.COLON ---
Operative Date/Time/Diagnoses Date of procedure: 10/02/22 Time of procedure: 10:14 Pre-op diagnosis: Personal history of malignant colon polyp status post right hemicolectomy Post-op diagnosis: same Procedure & Clinicians Study performed: Colonoscopy with cold snare polypectomy Same procedure as scheduled: Yes Indications: Personal history of malignant colon polyps status post right hemicolectomy Surgeon: Noah Singleton Procedure Notes SCOAP/Timeout: Done Procedure in detail: After the risks and benefits were explained, written and verbal informed consent was obtained. The patient was brought into the procedure room and placed into the left lateral decubitus position. Please see anesthesia notes for sedation details. Digital rectal examination was accomplished. The scope was introduced into the patient and advanced under direct visualization to the cecum as identified by the appendiceal orifice and ileocecal valve. The scope was slowly withdrawn to carefully examine the mucosa for any defects or lesions. Comprehensive imaging was accomplished throughout the rectum including the dentate line. The colon was decompressed, the scope was then removed from the patient who tolerated the procedure well. Pediatric colonoscope Bowel prep fair; with copious irrigation and suction this was rendered adequate. Scope withdrawal time: Not applicable Sedation minutes: 15 Complications: none Impression: The right hemicolectomy anastomosis appeared patent and normal. There was once again evidence of some inflammation in the rectum associated with hemorrhoidal engorgement consistent with irritation from intermittent rectal prolapse. The patient had grade 2-3 hemorrhoids. Adjacent this area of mucosa was an approximately 5 mm sessile polyp that was removed with cold snare. Endoscopic diagnosis 1. Grade 2-3 hemorrhoids with features suggestive of intermittent rectal prolapse 2. Rectal polyp 3. Normal right hemicolectomy anastomosis Post-procedure Plan for aftercare: 1. Await histopathology. 2. If this polyp is only hyperplastic, repeat colonoscopy will be suggested for 3 years. Disposition: PACU
[2022-10-02 10:17] VITALS: BP 97/46; PULSE 57; RESP 19; TEMP 36.3; O2SAT 98
[2022-10-02 10:24] VITALS: BP 106/49; PULSE 66; RESP 19; O2SAT 98
[2022-10-02 10:30] VITALS: BP 112/53; PULSE 66; RESP 28; O2SAT 100
[2022-10-02 10:32] VITALS: BP 120/64; PULSE 56; RESP 19; O2SAT 100
== END 2022-10-02 10:45 | disposition home or self-care (01) ==
PROVIDERS: PCP Internal Medicine; Referring Provider Internal Medicine Gastroenterology; Visit Provider Internal Medicine Gastroenterology
PROC: 0DJD8ZZ Inspection of Lower Intestinal Tract, Via Natural or Artificial Opening Endoscopic (ICD-10-PCS; CPT 45378; principal; 2022-10-02 09:30)
DX: Z12.11 Encounter for screening for malignant neoplasm of colon (principal); Z85.038 Personal history of other malignant neoplasm of large intestine; Z90.49 Acquired absence of other specified parts of digestive tract; K64.2 Third degree hemorrhoids; K62.1 Rectal polyp
CPT/HCPCS: 45385; J2704

== ENCOUNTER → 2023-02-12 14:01 | Outpatient (CLI) | payer MEDICARE, OTHER, SELFPAY ==
[2021-12-13 12:00] VITALS: BMI 25.6
--- NOTE | 2023-02-12 | DI.US.S_ITS ---
PROCEDURE: US FINE NEEDLE ASPIRATION INDICATIONS: REPEAT FINE NEEDLE ASPIRATION TECHNIQUE: The indications, alternatives, benefits, risks, and complications of the procedure were explained to the patient. Written informed consent was obtained and placed in the chart. The area of interest was examined sonographically and a site was chosen for ultrasound guided percutaneous sampling. The skin was prepared and draped in the usual fashion, and anesthetized with 1% lidocaine infiltrated from the skin down to the lesion. Multiple passes were then performed, with contents emptied into an appropriate pathology specimen container. A bandage was applied to the area of access at completion of the study. COMPARISON: Located within [facility], US FINE NEEDLE ASPIRATION, 08/25/2022, 8:07. FINDINGS: Location(s) of lesion(s) sampled: Left thyroid nodule [place]: 25 gauge hypodermic needles. Number of passes: 6 Medications: 1% lidocaine for local anaesthesia. Complications: None. IMPRESSION: Successful ultrasound-guided left thyroid nodule fine needle aspiration, with cytology results pending. Dictated by: Ravi Mauricio M.D. on 02/12/2023 at 15:44 Approved by: Ravi Mauricio M.D. on 02/12/2023 at 15:45
--- NOTE | 2023-02-12 | PATH_ITS ---
Note [facility] Accession Number: [id number] TESTS RESULT FLAG UNITS REF RANGE LAB Clinician Provided Cytology Information No. of containers..01 Other (Miscellaneous) No. of containers..02 Previously Prepared Cytology Slide Source: 01 RIGHT LATERAL THYROID NODULE #1 DIAGNOSIS: 01 RIGHT LATERAL THYROID NODULE #1, REPEAT FINE NEEDLE ASPIRATION. NEGATIVE FOR MALIGNANT CELLS. ADEQUATE FOR EVALUATION. FOLLICULAR GROUPS ARE PRESENT. BENIGN FOLLICULAR (GOITEROUS) NODULE (BETHESDA CATEGORY II), SEE COMMENT. COMMENT: MICROSCOPIC EXAMINATION REVEALS A MILDLY CELLULAR ASPIRATE, COMPOSED OF ABUNDANT COLLOID, FOLLICULAR GROUPS WITHOUT SIGNIFICANT CYTOLOGIC OR ARCHITECTURAL ATYPIA, AND BACKGROUND MACROPHAGES. THESE FINDINGS SUPPORT A BENIGN FOLLICULAR (GOITEROUS) NODULE. CORRELATION WITH CLINICAL AND RADIOGRAPHIC FINDINGS IS RECOMMENDED. ACCORDING TO THE BETHESDA REPORTING SYSTEM FOR THYROID CYTOPATHOLOGY, THE RISK OF MALIGNANCY IN THE CATEGORY BENIGN-CATEGORY II IS 0-3%; THEREFORE RECOMMEND CONTINUED ULTRASOUND SURVEILLANCE WITH REPEAT FNA IF THE NODULE SIGNIFICANTLY INCREASES IN SIZE. NOTE: PER REQUISITION FORM, MOLECULAR STUDIES ARE REQUESTED TO BE PERFORMED, REGARDLESS OF DIAGNOSIS. Pathologist ICD10: 01 E04.1 Signed out by: Marsha Quintana MD, Pathologist NPI- [id number] Performed by: Marsha Garcia, [employer] ([facility]) Gross description: 01 30 CC, RED, CLEAR RECIEVED: IN CYTOLYT WITH 6 ALCOHOL FIXED AND 6 QUICK STAINED SLIDES ALSO 1 RNA VIAL WILL ON 09-12-2024.VO /VDU 02/13/2023 0717 Local FLAG LEGEND: L-Low Normal,H-High Normal,LL-Alert Low,HH-Alert High <-Panic Low,>-Panic High,A-Abnormal,AA-Critical Abnormal Performed at: 01 =[facility] [address] [place] [address] [address], [place] [address] Jovanny Anderson MD, Performed at: 01 [facility] Cytology [address] [place] [address] [address], [place], [place] [id number] MD Jovanny Anderson MD Phone: [phone]
== END ==
PROVIDERS: PCP Internal Medicine; Referring Provider Specialist/Technologist, Other Surgical Technologist; Visit Provider Specialist/Technologist, Other Surgical Technologist
DX: E04.1 Nontoxic single thyroid nodule (principal)
CPT/HCPCS: 10005

== ENCOUNTER → 2023-02-21 07:39 | Outpatient (CLI) | payer MEDICARE, OTHER, SELFPAY ==
[2021-12-13 12:00] VITALS: BMI 25.6
[2023-02-21 08:28] LABS: Hematocrit 40.4 % (36-46); Hemoglobin 13.5 g/dL (12.0-16.0); Mean Corpuscular HGB Conc 33.3 % (30-36); Mean Corpuscular Volume 89.9 fL (80-100); Platelet Count 172 X10^3/uL (150-400); Red Cell Distribution Width 13.5 % (11.6-14.8); White Blood Cell Count 3.3 X10^3/uL (4.5-11.0)
[2023-02-21 09:00] LABS: Alanine Aminotransferase 26 IU/L (<35); Albumin 4.3 g/dL (3.5-5.0); Albumin Globulin Ratio 1.7 (1.0-2.8); Alkaline Phosphatase 56 U/L (38-126); Aspartate Aminotransferase 32 IU/L (14-36); BUN Creatinine Ratio 22.1 (6-22); Bilirubin Total 0.7 mg/dL (0.2-1.3); Blood Urea Nitrogen 15 mg/dL (7-17); Calcium 9.5 mg/dL (8.4-10.2); Carbon Dioxide 27 mmol/L (22-32); Chloride 102 mmol/L (98-107); Cholesterol 174 mg/dL (140-199); Estimated Glomerular Filt Rate > 60 mL/min (>60); Globulin 2.5 g/dL (1.7-4.1); Glucose 90 mg/dL (80-110); HDL Cholesterol 77 mg/dL (40-60); HEMOLYSIS < 15 (0-50); LDL Cholesterol Calculated 79 mg/dL (<100); Potassium 4.3 mmol/L (3.4-5.1); Sodium 136 mmol/L (137-145); Total Protein 6.8 g/dL (6.3-8.2); Triglycerides 88 mg/dL (35-150)
[2023-02-21 09:23] LABS: Carcinoembryonic Antigen 0.8 ng/mL (0.1-3.0); TSH w/ Reflex to FT4 0.78 uIU/mL (0.47-4.68)
== END ==
PROVIDERS: PCP Internal Medicine; Referring Provider Internal Medicine; Visit Provider Internal Medicine
DX: I10 Essential (primary) hypertension (principal); E04.1 Nontoxic single thyroid nodule; E78.2 Mixed hyperlipidemia; M06.9 Rheumatoid arthritis, unspecified; Z85.038 Personal history of other malignant neoplasm of large intestine
CPT/HCPCS: 36415; 80053; 80061; 82378; 84443; 85027

== ENCOUNTER → 2023-05-25 08:30 | Outpatient (CLI) | payer MEDICARE, OTHER, SELFPAY ==
[2021-12-13 12:00] VITALS: BMI 25.6
--- NOTE | 2023-05-25 08:31 | DI.MG.S_ITS ---
BILATERAL DIGITAL SCREENING MAMMOGRAM 3D/2D WITH CAD: 05/25/2023 CLINICAL: Routine screening. Family history of breast cancer. Comparison is made to exams dated: 04/15/2022 mammogram, 04/08/2021 mammogram, and 03/19/2020 mammogram - [facility]. Both breasts are heterogeneously dense, which may obscure small masses (category c / 51-75% glandular tissue). Current study was also evaluated with a Computer Aided Detection (CAD) system. There are benign calcifications in both breasts. No significant masses, calcifications, or other findings are seen in either breast. There has been no significant interval change. IMPRESSION: BENIGN There is no mammographic evidence of malignancy. A 1 year screening mammogram is recommended. Based on the Tyrer Cuzick model (a risk assessment model) the patient's lifetime risk is 12.1% and her 10 year risk is 0.0%. According to the ACR, ACS, and NCCN guidelines, an annual breast MRI exam along with mammogram is recommended if the patient's lifetime risk is 20% or greater. This exam was interpreted at Station ID: [id number]. NOTE: For mammograms, a report in lay terms will be sent to the patient. Approximately 15% of breast malignancies will not be visualized mammographically. In the management of a palpable breast mass, a negative mammogram must not discourage biopsy of a clinically suspicious lesion. Electronically Signed By: Maral crowell/jasmyne:05/25/2023 16:29:43 letter sent: Normal Exam ACR BI-RADS Category 2: Benign Finding(s) 3342F
== END ==
LOC: MAMMO 08:30
PROVIDERS: PCP Internal Medicine; Referring Provider Internal Medicine; Visit Provider Internal Medicine
DX: Z12.31 Encounter for screening mammogram for malignant neoplasm of breast (principal); Z80.3 Family history of malignant neoplasm of breast; R92.333 Mammographic heterogeneous density, bilateral breasts
CPT/HCPCS: 77063; 77067

== ENCOUNTER → 2024-02-18 08:34 | Outpatient (CLI) | payer MEDICARE, OTHER, SELFPAY ==
[2021-12-13 12:00] VITALS: BMI 25.6
[2024-02-18 09:16] LABS: Hematocrit 42.3 % (36-46); Mean Corpuscular Hemoglobin 30.3 PG (26-34); Mean Corpuscular Volume 91.8 fL (80-100); Platelet Count 199 X10^3/uL (150-400); Red Blood Cell Count 4.61 X10^6/uL (4.0-5.2); Red Cell Distribution Width 13.2 % (11.6-14.8); White Blood Cell Count 4.2 X10^3/uL (4.5-11.0)
[2024-02-18 09:55] LABS: Alanine Aminotransferase 32 IU/L (<35); Albumin 4.7 g/dL (3.5-5.0); Alkaline Phosphatase 65 U/L (38-126); Aspartate Aminotransferase 38 IU/L (14-36); BUN Creatinine Ratio 15.6 (6-22); Bilirubin Total 0.7 mg/dL (0.2-1.3); Blood Urea Nitrogen 12 mg/dL (7-17); C-Reactive Protein Quant < 0.5 mg/dL (<1.0); Calcium 9.6 mg/dL (8.4-10.2); Carbon Dioxide 27 mmol/L (22-32); Chloride 104 mmol/L (98-107); Cholesterol 195 mg/dL (140-199); Estimated Glomerular Filt Rate > 60 mL/min (>60); Globulin 2.4 g/dL (1.7-4.1); Glucose 101 mg/dL (80-110); HDL Cholesterol 107 mg/dL (40-60); HEMOLYSIS < 15 (0-50); LDL Cholesterol Calculated 71 mg/dL (<100); Potassium 4.3 mmol/L (3.4-5.1); Sodium 136 mmol/L (137-145); Total Protein 7.1 g/dL (6.3-8.2); Triglycerides 86 mg/dL (35-150)
[2024-02-18 10:09] LABS: TSH w/ Reflex to FT4 1.37 uIU/mL (0.47-4.68)
[2024-02-18 12:26] LABS: Erythrocyte Sedimentation Rate 8 MM/HR (0-20)
== END ==
PROVIDERS: PCP Internal Medicine; Referring Provider Internal Medicine; Visit Provider Internal Medicine
DX: I10 Essential (primary) hypertension (principal); M06.9 Rheumatoid arthritis, unspecified; E04.1 Nontoxic single thyroid nodule; Z85.038 Personal history of other malignant neoplasm of large intestine
CPT/HCPCS: 36415; 80053; 80061; 84443; 85027; 85651; 86140

== ENCOUNTER → 2024-03-17 14:08 | Outpatient (CLI) | payer MEDICARE, OTHER, SELFPAY ==
[2021-12-13 12:00] VITALS: BMI 25.6
--- NOTE | 2024-03-17 14:10 | DI.US.S_ITS ---
PROCEDURE: US THYROID INDICATIONS: thyroid nodule TECHNIQUE: Real-time scanning was performed of the thyroid gland, with image documentation. COMPARISON: [facility], US, US THYROID, 08/14/2022, 11:17. FINDINGS: Thyroid: Right lobe measures 4.2 x 2.0 x 1 point cm. Left lobe measures 2.6 x 0.9 x 1.1 cm. Isthmus is 0.2 cm thick. Echotexture is heterogenous. Nodule number: 1 (previously biopsied and found to be benign) Location: Right mid-inferior lobe Size: 3.1 x 2.1 x 1.7 cm (previously 3.6 x 2.1 x 1.5 cm). Composition: Solid Echogenicity: Isoechoic Shape: wider than tall. Margins: Smooth Echogenic foci: Punctate echogenic foci Total points: 6 ACR TI-RADS category: TR 4 Nodule number: 2 Location: Right superior lobe/parathyroid Size: 1.4 x 1.3 x 0.9 cm (no significant change). Composition: Solid Echogenicity: Isoechoic Shape: wider than tall. Margins: Smooth Echogenic foci: None Total points: 3 ACR TI-RADS category: TR 3 Nodule number: 3 Location: Right isthmus Size: 0.8 x 0.6 x 0.6 cm (no significant change. Composition: Solid Echogenicity: Hypoechoic Shape: wider than tall. Margins: Smooth Echogenic foci: None Total points: 4 ACR TI-RADS category: TR 4 Nodule number: 4 Location: Left superior pole Not identified IMPRESSION: 1. No significant change in thyroid nodules. 2. Consider that nodule 2 at the right superior lobe may represent a parathyroid adenoma. Please correlate with serum calcium, phosphate, and PTH lab values. 3. Otherwise, the nodules do not meet criteria for additional follow-up. ACR TI-RADS definitions and recommendations: TI-RADS 1 (benign): 0 points. FNA not needed. TI-RADS 2 (not suspicious): 2 points. FNA not needed. TI-RADS 3: 3 points. * FNA if 2.5 cm or larger, follow up if 1.5 cm or larger (at 1, 3, and 5 years). TI-RADS 4: 4-6 points. * FNA if 1.5 cm or larger, follow up if 1 cm or larger (at 1, 2, 3, and 5 years). TI-RADS 5: 7 points or more. * FNA if 1 cm or larger, follow up if 0.5 cm or larger (every year for 5 years). Dictated by: Pierre Humphrey M.D. on 03/18/2024 at 8:33 Approved by: Pierre Humphrey M.D. on 03/18/2024 at 8:58
== END ==
PROVIDERS: PCP Internal Medicine; Referring Provider Internal Medicine; Visit Provider Internal Medicine
DX: E04.2 Nontoxic multinodular goiter (principal)
CPT/HCPCS: 76536

== ENCOUNTER → 2024-06-18 07:57 | Outpatient (CLI) | payer MEDICARE, OTHER, SELFPAY ==
[2021-12-13 12:00] VITALS: BMI 25.6
--- NOTE | 2024-06-18 07:58 | DI.MG.S_ITS ---
MM screening mammo BI: 06/18/2024. BI-RADS: 1 CLINICAL: 79-year old female for bilateral screening mammogram. Tyrer-Cuzick lifetime risk of 7.8%. Current reported family history of breast cancer: sister. PRIOR EXAMS 05/25/2023, 04/15/2022, 04/08/2021, 03/19/2020, 12/04/2018, 10/17/2017. MAMMOGRAPHY TECHNIQUE: 2D and 3D (tomosynthesis) digital mammographic views obtained, with additional images as needed for full coverage. Current study was also evaluated with a Computer Aided Detection (CAD) system. DENSITY C. The breasts are heterogeneously dense, which may obscure small masses. MAMMOGRAPHY FINDINGS Bilateral: No suspicious mass, asymmetry, microcalcification, or other abnormality seen. No significant change from comparison. IMPRESSION: * No evidence of malignancy. RECOMMENDATIONS Bilateral * Annual screening mammography. OVERALL ASSESSMENT CATEGORY BI-RADS-1: Negative. The [employer] recommends annual screening mammography beginning at age 40 for women with average risk of breast cancer. ELECTRONICALLY SIGNED: Erin San M.D. on 06/18/2024 at 09:50:31 AM PT Interpreting Station ID: [id number]
== END ==
LOC: MAMMO 07:57
PROVIDERS: PCP Internal Medicine; Referring Provider Internal Medicine; Visit Provider Internal Medicine
DX: Z12.31 Encounter for screening mammogram for malignant neoplasm of breast (principal); Z80.3 Family history of malignant neoplasm of breast; R92.333 Mammographic heterogeneous density, bilateral breasts
CPT/HCPCS: 77063; 77067